=== PATIENT | male | born 1955 | race Caucasian/White ===

== ENCOUNTER 2019-12-16 19:32 | Emergency (ER) | payer OTHER, SELFPAY ==
[2019-12-16 19:44] VITALS: BP 149/76; PULSE 69; RESP 18; TEMP 36.6; O2SAT 98; BMI 33.0
--- NOTE | 2019-12-16 19:51 | XRR_ITS ---
PROCEDURE INFORMATION: Exam: XR Chest, 1 View Exam date and time: 12/16/2019 8:18 PM Age: 64 years old Clinical indication: Other: Syncope TECHNIQUE: Imaging protocol: XR of the chest Views: 1 view. COMPARISON: CR Chest 1 [place] [id number] 08/22/2018 3:00 AM FINDINGS: Lungs: Unremarkable. No consolidation. Pleural space: Unremarkable. No pleural effusion. No pneumothorax. Heart/Mediastinum: Unremarkable. No cardiomegaly. Bones/joints: Unremarkable. XR/XR chest 1V portable [id number] IMPRESSION: No acute findings.
--- NOTE | 2019-12-16 19:52 | ECG_ITS ---
[facility] Test Date: 2019-12-16 Pat Name: Carlos Mack Department: Room: Gender: Male Clinical Research Specialist: : [id number] Requested By: Yamilka Whalen Order Number: [id number] Arredondo MD: Eliz Velasco M.D. Measurements Intervals [place] Rate: 64 P: 60 DC: 184 QRS: -17 QRSD: 101 T: 18 QT: 418 QTc: 434 Interpretive Statements SINUS RHYTHM MINIMAL VOLTAGE CRITERIA FOR LVH, CONSIDER NORMAL VARIANT [MEETS CRITERIA IN ONE OF: R(aVL), S(V1), R(V5), R(V5/V6)+S(V1)] NONSPECIFIC T-WAVE ABNORMALITY Compared to ECG 08/22/2018 11:28:05 T-wave abnormality now present Electronically Signed On 12-16-2019 21:43:37 CDT by Eliz Velasco M.D. [id number]
--- NOTE | 2019-12-16 20:17 | CTR_ITS ---
PROCEDURE INFORMATION: Exam: CT Head Without Contrast Exam date and time: 12/16/2019 8:21 PM Age: 64 years old Clinical indication: Dizziness and syncope and collapse TECHNIQUE: Imaging protocol: Computed tomography of the head without contrast. Radiation optimization: All CT scans at this facility use at least one of these dose optimization techniques: automated exposure control; mA and/or kV adjustment per patient size (includes targeted exams where dose is matched to clinical indication); or iterative reconstruction. COMPARISON: No relevant prior studies available. RADIATION DOSE METRICS: Total DLP (mGy-cm): 965.84 FINDINGS: Brain: There is moderate cortical atrophy. Low-density changes in the white matter are consistent with nonspecific small vessel chronic ischemic change. There is no intracranial mass, hemorrhage or edema. Ventricles: Normal. No ventriculomegaly. Bones/joints: Unremarkable. No acute fracture. Sinuses: Visualized sinuses are unremarkable. No fluid levels. Mastoid air cells: Visualized mastoid air cells are well aerated. Soft tissues: Unremarkable. CT/CT head wo con* [id number] IMPRESSION: Atrophy and chronic ischemic changes. No acute intracranial finding. Radiation Dose CTDIVOL = (mGy): DLP = 965.84 (mGy-cm)
[2019-12-16 20:57] LABS: Basophils # 0.1 10^3/uL (0.0-0.1); Basophils % 0.9 %; Eosinophils # 0.2 10^3/uL (0.0-0.8); Eosinophils % 2.1 %; Hematocrit 46.4 % (42.0-52.0); Hemoglobin 15.3 g/dL (11.7-16.6); Lymphocytes # 2.6 10^3/uL (0.8-4.8); Lymphocytes % 25.5 %; Mean Corpuscular Hemoglobin 28.9 pg (28.0-34.0); Mean Corpuscular Volume 87.5 fL (80-94); Mean Platelet Volume 11.1 fL (7.4-10.4); Monocytes # 0.7 10^3/uL (0.2-0.9); Monocytes % 6.8 %; Neutrophils # 6.56 10^3/uL (1.8-7.7); Neutrophils % 64.1 %; Nucleated Red Blood Cells % 0 %; Platelet Count 145 10^3/cmm (130-400); Red Cell Distribution Width 13.8 % (12.1-15.1); White Blood Count 10.2 10^3/uL (4.0-10.0)
[2019-12-16 21:00] VITALS: BP 161/96; PULSE 61; RESP 14; O2SAT 96
--- NOTE | 2019-12-16 21:02 | ED_ITS ---
HPI - Weakness General: Chief complaint: Weakness Stated complaint: dizziness/syncope Time Seen by Provider: 12/16/19 20:03 Source: patient Mode of arrival: ambulatory Limitations: no limitations History of Present Illness: HPI Narrative: Mr. Mack is a very nice 64-year-old male who comes in complaining of feeling lightheaded and dizzy when he stands up and begins to walk. The symptoms been going on for almost a year but becoming more severe recently. He states sometimes he will fall and he becomes near syncopal but never completely loses consciousness. He denies any injuries from these falls. Patient denies any room spinning dizziness but states when he gets up and stands and begins to walk things began to feel weak all over and his legs get out and he falls to the ground. He denies any preceding chest pain, shortness of breath, palpitations or headache. He denies any recent black or bloody stools. Patient states he has had similar symptoms in the past and he has [facility] and no cause can be determined. He comes in tonight because his symptoms are worsening over the past few days. Currently at rest in the bed he states he feels fine and has no complaints. [facility] ED PFSH: Medical History (Updated 12/17/19 @ 03:16 by Yamilka Dee) Depression GERD (gastroesophageal reflux disease) Hyperlipidemia Hypertension Neuropathy Social History (Updated 12/17/19 @ 03:17 by Yamilka Dee) Smoking and tobacco status: never smoked Alcohol intake: former Substance/Drug Use: never Physical Exam Const: COMMON NORMALS: no acute distress, patient oriented x3, no limitations, healthy appearing and well nourished GENERAL APPEARANCE: cooperative, well kempt and well developed HENMT: COMMON NORMALS: normocephalic, atraumatic, external ears normal, EAC's normal and Normal external nose present HEAD & SCALP: normal to inspection, normocephalic and atraumatic FACE & SINUS: normal facial exam and face symmetric NOSE: Normal external nose present and Normal nares present EXTERNAL EAR: Yes external ears normal EXTERNAL AUDITORY CANAL: EAC's normal MOUTH: Normal oral and palatal mucosa present, lip normal and tongue normal Eye: COMMON NORMALS: Equal, round and reactive pupils present and conjunctivae normal GENERAL EYE: appearance normal, both eyes and all related structures ALIGNMENT: Yes alignment normal PERIORBITAL: periorbital findings normal EYELID: eyelids normal CONJUNCTIVA: Yes conjunctivae normal SCLERA: sclerae normal PUPIL: Yes Equal, round and reactive pupils present Neck/C-Spine: COMMON NORMALS: full ROM, no lymphadenopathy, supple, no meningeal signs and no JVD GENERAL: Yes normal visual inspection and Yes trachea midline Chest: COMMONS NORMALS: normal inspection of the chest and normal palpation of entire chest wall Resp: COMMON NORMALS: normal respiratory effort, No retractions and No use of accessory muscles EFFORT & INSPECTION: Yes able to speak in complete s entences and Yes symmetric chest movement AUSCULTATION: no crackles, no rales, no rhonchi and no wheezes Cardio: COMMON NORMALS: no JVD, regular rate, regular rhythm, S1 normal heart sound present and S2 normal heart sound present RATE: regular rate RHYTHM: regular rhythm HEART SOUNDS: S1 normal heart sound present, S2 normal heart sound present, no click, no gallops, no murmurs, no rubs and abnormal split S2 GI: COMMON NORMALS: Soft to palpation and No hepatosplenomegaly present PALPATION: Yes Soft to palpation, No Tenderness to palpation present (GI), No Guarding due to palpation present (GI), No Rigid due to palpation, Yes No hepatosplenomegaly present, No Hernia present, No Palpable mass present and No Pulsatile mass present : COMMON NORMALS: Yes no CVA tenderness BLADDER/KIDNEY EXAM: Yes no CVA tenderness Back/Pelvis: COMMON NORMALS: no CVA tenderness, thoracic and lumbar spine normal to inspection, no thoracic nor lumbar tenderness and thoraco-lumbar ROM normal Extremity: COMMON NORMALS: normal to inspection, full ROM, capillary refill normal, no joint enlargement, no clubbing, cyanosis or edema and no calf tenderness Neuro: COMMON NORMALS: patient oriented x3, CN's II-XII intact bilaterally, moves all extremities, no focal motor deficits and no sensory deficits noted MENINGEAL SIGNS: Yes no meningeal signs SPEECH: speech normal Psych: COMMON NORMALS: mental status grossly normal, Normal thought process present, cooperative, normal affect, speech normal and activity/motor behavior normal APPEARANCE: Yes well kempt SPEECH: Yes normal speech THOUGHT PROCESS: Normal thought process present Skin: COMMON NORMALS: no rashes or lesions noted, turgor normal, no jaundice, no petechiae and no mottling GENERAL SKIN EXAM: no rashes or lesions noted and turgor normal Course ED course: 2044 -orthostatic blood pressures positive with a drop in systolic blood pressure of 31 points. Vital Signs: Vital signs: Vital Signs Temperature 97.9 F 12/16/19 19:44 Pulse Rate 57 L 12/17/19 00:34 Respiratory Rate 16 12/17/19 00:34 Blood Pressure 195/93 12/17/19 00:34 Pulse Oximetry 96 12/17/19 00:34 MDM - Weakness MDM Narrative: Medical decision making narrative: 0023 -Mr. Cochran is a very nice 64-year-old male who comes in with long-term history of lightheadedness and near syncopal events but this is been much worse here recently. Patient is on Lasix and based upon his orthostatic vital signs and his symptomatology I believe this is likely the cause for his symptoms. Patient has lost 80 pounds and he is trying to self adjust his medications and I believe he will probably need less Lasix than he is needed in the past. After 2 L of IV fluids his vital signs improved and after third liter his symptoms have completely resolved. He has been able to ambulate here without any difficulty, no signs of near syncope or syncope and no lightheadedness or dizziness. At no time as the patient had any nystagmus or room spinning dizziness to suggest a stroke. The patient states that he knows he needs [facility] and to try to stop managing his medications on his own. I have advised the patient to stop his Lasix until seen by the [facility] or at least stop it for the next 3 to 4 days. He agrees to do so. He understands also he needs to return here if his symptoms returned as he may need further work-up. The patient's EKG shows no sign of Ifrvx-Qbmimaorz-Prauc syndrome, obstructed AV pathway, Brugada syndrome, bifascicular blocks, Zepv-Dguttf-Vzyuub syndrome, epsilon wave, or long or short QT syndrome. It does show LVH but the patient is not having any chest pain, palpitations or suggestion of arrhythmia. Symptoms are most concerning for orthostasis. Patient does not want to come in the hospital but wants to go home. He agrees to [facility] the [facility] and they can perform an outpatient echo if necessary. Lab Data: Attestation: I reviewed the patient's lab results. Labs: Lab Results 12/16/19 12/16/19 12/16/19 Range/Units 20:49 20:49 20:49 WBC 10.2 H (4.0-10.0) 10^3/ uL RBC 5.30 (4.1-5.3) 10^6/u L Hgb 15.3 (11.7-16.6) g/dL Hct 46.4 (42.0-52.0) % MCV 87.5 (80-94) fL MCH 28.9 (28.0-34.0) pg MCHC 33.0 (30.0-36.0) g/dL RDW 13.8 (12.1-15.1) % Plt Count 145 (130-400) 10^3/c mm MPV 11.1 H (7.4-10.4) fL Neut % (Auto) 64.1 % Lymph % (Auto) 25.5 % Schleicher % (Auto) 6.8 % Eos % (Auto) 2.1 % Baso % (Auto) 0.9 % Neut # (Auto) 6.56 (1.8-7.7) 10^3/u L Lymph # (Auto) 2.6 (0.8-4.8) 10^3/u L Schleicher # (Auto) 0.7 (0.2-0.9) 10^3/u L Eos # (Auto) 0.2 (0.0-0.8) 10^3/u L Baso # (Auto) 0.1 (0.0-0.1) 10^3/u L Nucleated RBC % (a uto) 0 % Nucleated RBCs # 0.0 /100WBC Sodium 136 (136-145) mmol/L Potassium 4.0 (3.5-5.1) mmol/L Chloride 99 (98-107) mmol/L Carbon Dioxide 26 (22-29) mmol/L Anion Gap 15.0 (5-19) BUN 28 H (8-23) mg/dL Creatinine 1.5 H (0.7-1.2) mg/dL GFR Calculation 47.3 L (90-130) mL/min Glucose 122 H (65-115) mg/dL POC Glucose (70-110) mg/dL Calculated Osmolal ity 280 L (285-295) mOsm/k g Calcium 9.4 (8.5-10.5) mg/dL Magnesium 2.0 (1.7-2.3) mg/dL Total Bilirubin 0.2 (0.15-1.2) mg/dL AST 5 (0-40) U/L ALT < 5 (0-41) U/L Alkaline Phosphata se 83 (40-130) IU/L Troponin T Baselin e 20 H (0-15) ng/L Troponin T 120 Min herbert (0-15) ng/L Delta Troponin T (0-10) ABS# Total Protein 7.1 (6.6-8.7) g/dL Albumin 4.2 (3.5-5.2) g/dL Globulin 2.9 (1.3-4.6) g/dL Urine Color (Yellow) Urine Appearance (CLEAR) Urine pH (5-7) Ur Specific Gravit y (1.005-1.030) Urine Protein (Negative) Urine Glucose (UA) (Normal) Urine Ketones (Negative) Urine Blood (Negative) Urine Nitrate (Negative) Urine Bilirubin (NEGATIVE) Urine Urobilinogen (Negative) mg/dL Ur Leukocyte Elsi ase (Negative) 12/16/19 12/16/19 12/16/19 Range/Units 21:51 21:59 23:43 WBC (4.0-10.0) 10^3/ uL RBC (4.1-5.3) 10^6/u L Hgb (11.7-16.6) g/dL Hct (42.0-52.0) % MCV (80-94) fL MCH (28.0-34.0) pg MCHC (30.0-36.0) g/dL RDW (12.1-15.1) % Plt Count (130-400) 10^3/c mm MPV (7.4-10.4) fL Neut % (Auto) % Lymph % (Auto) % Schleicher % (Auto) % Eos % (Auto) % Baso % (Auto) % Neut # (Auto) (1.8-7.7) 10^3/u L Lymph # (Auto) (0.8-4.8) 10^3/u L Schleicher # (Auto) (0.2-0.9) 10^3/u L Eos # (Auto) (0.0-0.8) 10^3/u L Baso # (Auto) (0.0-0.1) 10^3/u L Nucleated RBC % (a uto) % Nucleated RBCs # /100WBC Sodium (136-145) mmol/L Potassium (3.5-5.1) mmol/L Chloride (98-107) mmol/L Carbon Dioxide (22-29) mmol/L Anion Gap (5-19) BUN (8-23) mg/dL Creatinine (0.7-1.2) mg/dL GFR Calculation (90-130) mL/min Glucose (65-115) mg/dL POC Glucose 118 (70-110) mg/dL Calculated Osmolal ity (285-295) mOsm/k g Calcium (8.5-10.5) mg/dL Magnesium (1.7-2.3) mg/dL Total Bilirubin (0.15-1.2) mg/dL AST (0-40) U/L ALT (0-41) U/L Alkaline Phosphata se (40-130) IU/L Troponin T Baselin e (0-15) ng/L Troponin T 120 Min herbert 19.57 H (0-15) ng/L Delta Troponin T -0.43 L (0-10) ABS# Total Protein (6.6-8.7) g/dL Albumin (3.5-5.2) g/dL Globulin (1.3-4.6) g/dL Urine Color Yellow (Yellow) Urine Appearance Clear (CLEAR) Urine pH 5 (5-7) Ur Specific Gravit y 1.025 (1.005-1.030) Urine Protein Neg (Negative) Urine Glucose (UA) Norm (Normal) Urine Ketones Negative (Negative) Urine Blood Neg (Negative) Urine Nitrate Negative (Negative) Urine Bilirubin Neg (NEGATIVE) Urine Urobilinogen Norm (Negative) mg/dL Ur Leukocyte Elsi ase Negative (Negative) Imaging Data^: CXR: Attestation: I personally reviewed and interpreted this imaging study as follows: My impression: No acute cardiopulmonary findings. CT Head: Radiologist's impression: [address] [address] [address] Scan Report Signed Patient: Carlos Mack Unit #: [id number] : 1955 Age/Sex: 64 / M ADM Date: 12/16/19 Loc: ER Room/Bed: Attending Dr: Ordering Provider/Ordering MD: Yamilka Dee DO Date of Service: 12/16/19 Procedure(s): CT head wo con* [id number] Accession Number(s): [id number] Report Number: [id number] PROCEDURE INFORMATION: Exam: CT Head Without Contrast Exam date and time: 12/16/2019 8:21 PM Age: 64 years old Clinical indication: Dizziness and syncope and collapse TECHNIQUE: Imaging protocol: Computed tomography of the head without contrast. Radiation optimization: All CT scans at this facility use at least one of these dose optimization techniques: automated exposure control; mA and/or kV adjustment per patient size (includes targeted exams where dose is matched to clinical indication); or iterative reconstruction. COMPARISON: No relevant prior studies available. RADIATION DOSE METRICS: Total DLP (mGy-cm): 965.84 FINDINGS: Brain: There is moderate cortical atrophy. Low-density changes in the white matter are consistent with nonspecific small vessel chronic ischemic change. There is no intracranial mass, hemorrhage or edema. Ventricles: Normal. No ventriculomegaly. Bones/joints: Unremarkable. No acute fracture. Sinuses: Visualized sinuses are unremarkable. No fluid levels. Mastoid air cells: Visualized mastoid air cells are well aerated. Soft tissues: Unremarkable. CT/CT head wo con* [id number] IMPRESSION: Atrophy and chronic ischemic changes. No acute intracranial finding. Radiation Dose CTDIVOL = (mGy): DLP = 965.84 (mGy-cm) Dictated By: Rhys Miller Signed By: Rhys Miller Signed Date/Time: 12/16/192049 DD/ 49 EKG Data^: EKG 1: Attestation: I personally reviewed and interpreted this EKG as follows: EKG interpretation date: 12/16/19 EKG interpretation time: 19:59 Interpretation: Normal sinus rhythm at 64 beats a minute, left axis deviation, LVH present, no other acute ST or T wave changes. EKG 2: Attestation: I personally reviewed and interpreted this EKG as follows: EKG interpretation date: 12/16/19 EKG interpretation time: 22:13 Interpretation: Normal sinus rhythm at 59 beats a minute, left axis deviation, no acute ST or T wave changes. Discharge Plan Discharge Patient Disposition: Home Clinical Impression: Near syncope, Orthostasis Condition: Stable Prescriptions: No Action Airborne (ascorbate sodium) 1 tab PO DAILY RF: 0 Multiple Vitamins Tablet 1 tab PO DAILY RF: 0 Lasix 40 mg Tablet 40 mg PO QAM RF: 0 metoprolol tartrate 100 mg Tablet 100 mg PO BID RF: 0 trazodone 100 mg Tablet 100 mg PO BEDTIME RF: 0 Protonix 40 mg Tablet,Delayed Release (Dr/Ec) 40 mg PO BID RF: 0 indomethacin 50 mg Capsule 50 mg PO TID RF: 0 omeprazole 20 mg Capsule,Delayed Release(Dr/Ec) 20 mg PO QAM RF: 0 vitamin B complex Tablet 1 tab PO DAILY RF: 0 hydralazine 50 mg Tablet 50 mg PO TID RF: 0 sertraline 50 mg Tablet 50 mg PO DAILY RF: 0 Mucus Relief 400 mg Tablet 400 mg PO PRN RF: 0 Lyrica 75 mg Capsule 75 mg PO TID RF: 0 Flushing-3 350 mg-235 mg- 90 mg-597 mg Capsule,Delayed Release(Dr/Ec) 1 cap PO DAILY RF: 0 folic acid 1 tab PO DAILY RF: 0 magnesium oxide 1 tab PO DAILY RF: 0 Discharge Orders: Discharge Order (Routine); Ordered 12/17/19 Ordered By: Yamilka Dee Referrals: Sushant Hooper MD [Primary Care Provider] - 1-3 days Discharge Diet: Usual diet Discharge Activity: Increase activity as tolerated Patient Instructions: Dehydration (ED), Near Syncope (ED) Activity Restrictions/Additional Instructions: Please return to the ER immediately for any of the signs or symptoms listed on your discharge instruction sheets, worsening/changing of your symptoms, you are not getting better as quickly as expected, or for ANY other cause or concerns. Hold your Lasix for at least 2 to 3 days, ideally hold it until you could be [facility] and have your medicines and symptoms reviewed. If your symptoms of lightheadedness and nearly passing out return please return to the ER immediately for recheck. Discharge Date/Time: 12/17/19 00:35 Coding Level of Care Code ED Class 1 Owner Operator for Chg Fwd Exam Comprehensive
[2019-12-16 21:21] LABS: Albumin Level 4.2 g/dL (3.5-5.2); Alkaline Phosphatase 83 IU/L (40-130); Blood Urea Nitrogen 28 mg/dL (8-23); Calcium 9.4 mg/dL (8.5-10.5); Carbon Dioxide 26 mmol/L (22-29); Chloride 99 mmol/L (98-107); Globulin 2.9 g/dL (1.3-4.6); Glomerular Filtration Rate 47.3 mL/min (90-130); Glucose 122 mg/dL (65-115); Osmolality Calculated 280 mOsm/kg (285-295); Sodium 136 mmol/L (136-145); Total Bilirubin 0.2 mg/dL (0.15-1.2); Total Protein 7.1 g/dL (6.6-8.7)
[2019-12-16 21:24] LABS: Troponin(5th) Baseline 20 ng/L (0-15)
[2019-12-16 21:36] LABS: Alanine Aminotransferase < 5 U/L (0-41); Aspartate Amino Transferase 5 U/L (0-40)
[2019-12-16] MEDS: sodium chloride 0.9% 1,000 ML 999 ML IV ×3 (21:52→23:09)
--- NOTE | 2019-12-16 21:52 | ECG_ITS ---
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 Measurements Intervals [place] Rate: 59 P: 84 TX: 185 QRS: -17 QRSD: 101 T: 19 QT: 439 QTc: 437 Interpretive Statements SINUS BRADYCARDIA POSSIBLE LEFT VENTRICULAR HYPERTROPHY [VOLTAGE CRITERIA PLUS LAE OR QRS WIDENING] NONSPECIFIC ST & T-WAVE ABNORMALITY Compared to ECG 12/16/2019 19:59:42 T-wave abnormality still present Electronically Signed On 12-17-2019 18:13:10 CDT by Sarmad Hernandez M.D. [email or web address]/store/[id number]
[2019-12-16 22:13] LABS: Add Urine Microscopic? NO
[2019-12-16 22:27] LABS: Bilirubin Urine Neg (NEGATIVE); Blood Urine Neg (Negative); Glucose Urine UA Norm (Normal); Ketones Urine Negative (Negative); Leukocyte Esterase Urine Negative (Negative); Nitrate Urine Negative (Negative); Protein Urine Neg (Negative); Specific Gravity, Urine 1.025 (1.005-1.030); Urine Appearance Clear (CLEAR); Urine Color Yellow (Yellow); Urobilinogen Urine Norm (Negative); pH Urine 5 (5-7)
[2019-12-16 22:43] LABS: Troponin 5 2HR 19.57 ng/L (0-15)
[2019-12-16 22:46] LABS: Troponin 5 2HR Delta -0.43 ABS# (0-10)
[2019-12-16 22:57] VITALS: BP 187/106; PULSE 54; RESP 14; O2SAT 96
[2019-12-16] MEDS: acetaminophen 500 mg Tablet 1000 MG PO (23:17)
[2019-12-16 23:30] VITALS: BP 193/98; PULSE 55; RESP 16; O2SAT 96
[2019-12-16 23:48] LABS: Glucose Point of Care 118 mg/dL (70-110)
--- NOTE | 2019-12-17 00:22 | PC.NURSE ---
Patient able to ambulate without difficulty
[2019-12-17 00:34] VITALS: BP 195/93; PULSE 57; RESP 16; O2SAT 96
== END 2019-12-17 00:35 | disposition home or self-care (01) ==
PROVIDERS: Emergency Provider Emergency Medicine; PCP Internal Medicine
DX: R55 Syncope and collapse (principal); I95.1 Orthostatic hypotension; E78.5 Hyperlipidemia, unspecified; I10 Essential (primary) hypertension
CPT/HCPCS: 12345; 36415; 36416; 70450; 71045; 80053; 81003; 82962; 83735; 84484; 85025; 93005; 93010; 96360; 96361; 99283; J7030

== ENCOUNTER 2020-03-31 08:30 | Outpatient (CLI) | payer OTHER, SELFPAY ==
--- NOTE | 2020-03-31 08:40 | MR_ITS ---
WS: [id number] MRI HEAD WITH CONTRAST WITH ATTENTION TO THE INTERNAL AUDITORY CANALS TECHNIQUE: Sagittal T1, T2 axial, T2 axial flair, axial susceptibility weighted imaging, axial diffus ion weighted images, and coronal T2 images were obtained. Pre and post T1 axial and post T1 coronal i mages. ADC and FSPGR images. Post gadolinium images with attention to the internal auditory canals. A xial fiesta imaging. CLINICAL INFORMATION: DIZZINESS AND GIDDINESS COMPARISON: CT December 16, 2019 FINDINGS: No evidence of restricted diffusion to suggest acute ischemia. Ventricular system and basal cisterns are patent. Moderate small vessel changes. Moderate parenchymal volume loss. Small vessel changes in the alvino. Normal posterior fossa. Normal vascular flow voids at the skull base. No extra-axial fluid collections. Partial opacification right mastoid air cells. No hemosiderin on the susceptibility weighted images. Proximal 7th and 8th cranial nerves appear norm al. Normal trigeminal nerve root entry zones. No evidence of enhancing IAC or CP angle mass. Normal o ptic chiasm and pituitary infundibulum. Normal cavernous sinuses and Meckel's cave. No abnormal intra cranial enhancement. Visualized dural venous sinuses are patent. MR/MR iac's wo/w con* [id number] IMPRESSION: 1. No evidence of enhancing IAC or CP angle mass. 2. Proximal 7th and 8th cranial nerves are normal. Normal trigeminal nerve barbie t entry zones. 3. Normal optic chiasm and pituitary infundibulum. 4. Moderate small vessel changes with moderate parenchymal volume loss. Small vessel changes in the alvino. 5. Paranasal sinuses are well aerated. Mild mucosal thickening right mastoid a ir cells. Left mastoid air cells well aerated. 6. No other significant findings.
== END 2020-03-31 08:31 | disposition home or self-care (01) ==
LOC: RADWPI 08:34
PROVIDERS: PCP Internal Medicine; Visit Provider Specialist
DX: R42 Dizziness and giddiness (principal)
CPT/HCPCS: 70553; A9579

== ENCOUNTER 2020-07-05 23:31 | Emergency (ER) | payer OTHER, SELFPAY ==
[2020-07-05 23:34] VITALS: BP 136/84; PULSE 63; RESP 16; TEMP 36.6; O2SAT 95; BMI 33.0
--- NOTE | 2020-07-05 23:37 | XR_ITS ---
WS: [id number] Exam: XR knee RT 3V* [id number] Date/Time of Exam: 07/05/2020 11:41 PM Reason For Exam: fall No acute fracture or dislocation. Moderate tricompartmental DJD. No joint effusion. Meniscal calcific ations are noted with probable calcified loose joint bodies. XR/XR knee RT 3V* [id number] IMPRESSION: 1. No fracture or dislocation. 2. Degenerative changes and chondrocalcinosis. Probable calcified loose joint b odies.
--- NOTE | 2020-07-05 23:38 | W.ED.FALL ---
HPI - Fall General: Chief Complaint: Extremity Injury, Lower Stated Complaint: KNEE PAIN Time Seen by Provider: 07/05/20 23:31 Source: patient and EMS Mode of arrival: EMS Limitations: no limitations History of Present Illness: HPI Narrative: 65-year-old male who states that he slipped and fell this morning on the ice. States he twisted his right knee and has had medial knee pain since then. States pain is sharp in nature rates an 8 out of 10. He has had difficulty walking on that knee as it feels unstable. Denies any other injuries. Denies hitting his head. MD complaint: fall Associated symptoms-after fall: Denies abdominal pain, chest pain or headache(s) Review of Systems Const: Denies: fever(s), chills, body aches or change in appetite Eyes: Denies: blurry vision or eye discomfort ENMT: Denies: throat pain or dental pain Card: Denies: chest pain Resp: Denies: dyspnea GI: Denies: abdominal pain, nausea, vomiting or diarrhea : Denies: dysuria Musc: Reports: joint pain Skin/Breast: Denies: rash Neuro: Denies: headache(s) Psych: Denies: depression Hood/Lymph: Denies: easy bruising All/Imm: Denies: urticaria PFSH ED PFSH: Medical History (Updated 07/05/20 @ 23:55 by Ludin Fitch MD) Depression GERD (gastroesophageal reflux disease) Hyperlipidemia Hypertension Neuropathy Social History Smoking and tobacco status: never smoked Alcohol intake: former Physical Exam Const: COMMON NORMALS: no acute distress, patient oriented x3 and healthy appearing HENMT: COMMON NORMALS: normocephalic and atraumatic HEAD & SCALP: normocephalic and atraumatic Eye: COMMON NORMALS: Equal, round and reactive pupils present and EOMs intact bilaterally PUPIL: Yes Equal, round and reactive pupils present Neck/C-Spine: COMMON NORMALS: full ROM and supple Chest: COMMONS NORMALS: normal inspection of the chest and normal palpation of entire chest wall Resp: COMMON NORMALS: normal respiratory effort, No retractions, No use of accessory muscles and clear to auscultation bilaterally AUSCULTATION: clear to auscultation bilaterally Cardio: COMMON NORMALS: regular rate, regular rhythm and No murmurs present (Cardio) RATE: regular rate RHYTHM: regular rhythm GI: COMMON NORMALS: Normal to inspection, nondistended, normoactive bowel sounds present, Soft to palpation, non-tender and no masses PALPATION: Yes Soft to palpation Extremity: NARRATIVE EXTREMITY EXAM: Slight tenderness over medial aspect of right knee no obvious deformity. Distal pulses are intact. Neuro: COMMON NORMALS: patient oriented x3, moves all extremities and no focal motor deficits Psych: COMMON NORMALS: mental status grossly normal, Normal thought process present and cooperative THOUGHT PROCESS: Normal thought process present Skin: COMMON NORMALS: no rashes or lesions noted and no wounds GENERAL SKIN EXAM: no rashes or lesions noted Course Vital Signs: Vital signs: Vital Signs Temperature 97.9 F 07/05/20 23:34 Pulse Rate 63 07/05/20 23:34 Respiratory Rate 16 07/05/20 23:34 Blood Pressure 136/84 07/05/20 23:34 Pulse Oximetry 95 07/05/20 23:34 MDM - Fall MDM Narrative: Medical decision making narrative: Patient presents here with knee pain from a fall. Patient's x-ray here shows no acute fracture. He is able to walk on it some. I did inform him to weight-bear as tolerated though and will place him on crutches and a knee immobilizer. We will get him follow-up with orthopedics as he likely needs an MRI if he continues to have pain. Imaging Data^: xr knee: Attestation: I personally reviewed and interpreted this imaging study as follows: My impression: no acute abnormality Discharge Plan Discharge Patient Disposition: Home Clinical Impression: Right knee sprain Qualifiers: Encounter type: initial encounter Involved ligament of knee: unspecified ligament Qualified Code(s): S83.91XA - Sprain of unspecified site of right knee, initial encounter Condition: Stable Prescriptions: New Naprosyn 500 mg tablet 500 mg PO BID PRN (Reason: pain) Qty: 20 RF: 0 No Action Airborne (ascorbate sodium) 1 tab PO DAILY RF: 0 Multiple Vitamins Tablet 1 tab PO DAILY RF: 0 Lasix 40 mg Tablet 40 mg PO QAM RF: 0 metoprolol tartrate 100 mg Tablet 100 mg PO BID RF: 0 trazodone 100 mg Tablet 100 mg PO BEDTIME RF: 0 Protonix 40 mg Tablet,Delayed Release (Dr/Ec) 40 mg PO BID RF: 0 indomethacin 50 mg Capsule 50 mg PO TID RF: 0 omeprazole 20 mg Capsule,Delayed Release(Dr/Ec) 20 mg PO QAM RF: 0 vitamin B complex Tablet 1 tab PO DAILY RF: 0 hydralazine 50 mg Tablet 50 mg PO TID RF: 0 sertraline 50 mg Tablet 50 mg PO DAILY RF: 0 Mucus Relief 400 mg Tablet 400 mg PO PRN RF: 0 Lyrica 75 mg Capsule 75 mg PO TID RF: 0 [place]-3 350 mg-235 mg- 90 mg-597 mg Capsule,Delayed Release(Dr/Ec) 1 cap PO DAILY RF: 0 folic acid 1 tab PO DAILY RF: 0 magnesium oxide 1 tab PO DAILY RF: 0 Discharge Orders: Discharge ED (Routine); Ordered 07/05/20 Ordered By: Ludin Fitch Referrals: Denzel Da Silva DO [Physician] - 1-3 days Sushant Hooper MD [Primary Care Provider] - Discharge Diet: Advance as tolerated Discharge Activity: Resume usual activity Patient Instructions: Knee Sprain (ED), Knee Immobilizer (ED) Coding Level of Care Code ED Composition Stone Applicator for Chg Fwd Exam Comprehensive
--- NOTE | 2020-07-06 08:54 | DCPLANNER ---
Addendum entered by Nani Dumont 07/06/20 09:21: Patient has [facility] insurance, director case management will email patients information to Lizabeth with [facility], so that the authorization process can be started. it application development manager called the ortho clinic, letting clinic know that patient has [facility] insurance and that director case management will email patients information to the [facility]. Original Note: it application development manager had message to schedule a follow up appointment for patient with ortho. it application development manager called the ortho clinic, spoke with Janelle, gave clinic patients information. it application development manager was told that patients information would be printed and reviewed. Clinic will call patient with appointment information.
--- NOTE | 2020-07-13 15:04 | DCPLANNER ---
Patient has a follow up appointment scheduled for Monday, July 20, 2020 at 2:[address] Bonner. Clinic will call patient with appointment information. television station manager emailed August with [facility] appointment information for patient.
--- NOTE | 2020-07-30 08:11 | DCPLANNER ---
Patient had a follow up appointment with Dr. Bonner at ortho on 07.20.20 - patient did attend appointment.
== END 2020-07-06 00:18 | disposition home or self-care (01) ==
PROVIDERS: Emergency Provider Emergency Medicine; PCP Internal Medicine
DX: S83.91XA Sprain of unspecified site of right knee, initial encounter (principal); I10 Essential (primary) hypertension; E78.5 Hyperlipidemia, unspecified; W00.0XXA Fall on same level due to ice and snow, initial encounter
CPT/HCPCS: 29530; 73562; 99283; E0114

== ENCOUNTER 2020-12-07 06:00 | Outpatient (RCR) | payer OTHER, SELFPAY | END 2020-12-11 23:59 | disposition home or self-care (01) | LOC: WPT 06:00 | PROVIDERS: PCP Internal Medicine; Referring Provider Internal Medicine; Visit Provider Internal Medicine | DX: S83.91XD Sprain of unspecified site of right knee, subsequent encounter (principal); X58.XXXD Exposure to other specified factors, subsequent encounter | CPT/HCPCS: 97161 ==

== ENCOUNTER 2023-02-15 06:00 | Outpatient (RCR) | payer OTHER, SELFPAY | END 2023-03-13 23:59 | disposition home or self-care (01) | LOC: WPT 06:00 | PROVIDERS: Visit Provider Internal Medicine | DX: G82.52 Quadriplegia, C1-C4 incomplete (principal) | CPT/HCPCS: 97110; 97112; 97161; 97530 ==

== ENCOUNTER 2023-05-29 16:44 | Emergency (ER) | payer OTHER, SELFPAY ==
[2023-05-29 16:46] VITALS: BMI 25.4
[2023-05-29 16:48] VITALS: BP 153/86; PULSE 64; RESP 16; TEMP 36.8; O2SAT 96
--- NOTE | 2023-05-29 16:53 | CTR_ITS ---
PROCEDURE INFORMATION: Exam: CT Cervical Spine Without Contrast Exam date and time: 05/29/2023 5:16 PM Age: 68 years old Clinical indication: Injury or trauma; Fall; Blunt trauma; Prior surgery; Surgery date: 6+ months; Surgery type: C spine TECHNIQUE: Imaging protocol: Computed tomography of the cervical spine without contrast. Axial, coronal and sagittal reformatted images were created and reviewed. Radiation optimization: All CT scans at this facility use at least one of these dose optimization techniques: automated exposure control; mA and/or kV adjustment per patient size (includes targeted exams where dose is matched to clinical indication); or iterative reconstruction. COMPARISON: CT head wo con* [id number] 05/29/2023 5:16 PM RADIATION DOSE METRICS: Total DLP (mGy-cm): 264 FINDINGS: Bones/joints: Osteopenia. Straightening of the normal cervical lordosis. Status post C2-C4 ACDF. Status post C2-C6 posterior fusion with associated laminectomy defects. No CT evidence of acute fracture, dislocation or subluxation. Alignment anatomic. Minimal levoscoliosis. Next Vertebral body heights maintained. Mild multilevel degenerative changes, characterized by disc space narrowing, osteophytosis and uncovertebral and facet joint hypertrophy. Mild multilevel spinal canal and neural foraminal narrowing. Lungs: Grossly unremarkable. Soft tissues: Grossly unremarkable. CT/CT cervical spin wo con* [id number] [address]: 1[address] No CT evidence of acute cervical spine traumatic injury. 2. Additional findings, as above.
--- NOTE | 2023-05-29 16:53 | CTR_ITS ---
PROCEDURE INFORMATION: Exam: CT Head Without Contrast Exam date and time: 05/29/2023 5:16 PM Age: 68 years old Clinical indication: Injury or trauma; Fall; Blunt trauma (contusions or hematomas) TECHNIQUE: Imaging protocol: Computed tomography of the head without contrast. Axial, coronal and sagittal reformatted images were created and reviewed. Radiation optimization: All CT scans at this facility use at least one of these dose optimization techniques: automated exposure control; mA and/or kV adjustment per patient size (includes targeted exams where dose is matched to clinical indication); or iterative reconstruction. COMPARISON: CT head wo con* [id number] 12/16/2019 8:25 PM RADIATION DOSE METRICS: Total DLP (mGy-cm): 1256 FINDINGS: Brain: Patchy areas of hypoattenuation in the periventricular and subcortical white matter, consistent with chronic small vessel ischemic disease. Focal, well-circumscribed hypodensities in the basal ganglia, consistent with chronic lacunar infarcts. No CT evidence of acute intracranial hemorrhage or acute territorial infarction. No significant mass effect or midline shift. Basal cisterns patent. Cerebral ventricles: Prominence of the cortical sulci, cisterns and ventricular system, consistent with cerebral and cerebellar volume loss. Paranasal sinuses: Mild ethmoid mucosal thickening. No fluid levels. Mastoid air cells: Partial opacification and sclerosis of the right mastoid air cells. Bones/joints: No acute osseous abnormality. Soft tissues: Small left frontal scalp sebaceous cyst. Vasculature: Calcific atherosclerotic disease in the cavernous internal carotid arteries, as well as the vertebro-basilar system. CT/CT head wo con* [id number]: 1[address] No CT evidence of acute intracranial pathology. 2. Additional findings, as above.
--- NOTE | 2023-05-29 16:53 | W.ED.NECK ---
Documented by User: Harshil Hill DO 05/30/23 06:03 HPI - Neck Pain/Injury General: Chief Complaint: Neck Pain/Injury Stated Complaint: Neck Pain Time Seen by Provider: 05/29/23 16:51 Source: patient Mode of arrival: EMS History of Present Illness: A six 8-year-old male presents emergency room after falling yesterday hitting his head and neck he has no increased neck pain. He has chronic neck pain from previous neck injury several months ago for which she underwent surgery his chronic upper extremity radicular numbness and tingling to his arms that is unchanged from his previous baseline denies any other injuries there is no loss of consciousness MD complaint: neck pain Onset (ago): day(s) (1) Place: home Radiation: right upper extremity and left upper extremity Severity: mild Quality: tingling Duration: constant Relieving factors: none Exacerbating factors: none Context: fall Associated symptoms: Denies dysphagia, difficulty walking, dizziness, fevers/chills, headache(s), nausea, swollen glands, tingling or weakness Treatments prior to arrival: none Review of Systems Const: Denies: fever(s) or chills Card: Denies: chest pain Resp: Denies: dyspnea GI: Denies: nausea or dysphagia : Denies: dysuria, urinary frequency or urinary urgency Musc: Denies: neck pain or back pain Skin/Breast: Denies: rash Neuro: Denies: headache(s), difficulty walking or dizziness PFSH ED PFSH: Medical History Depression Neuropathy GERD (gastroesophageal reflux disease) Hyperlipidemia Hypertension Family History Mother Cancer Dementia Father Cancer Psychiatric illness Social History Smoking and tobacco/nicotine status: never used tobacco/nicotine Alcohol intake: former Substance/Drug Use: never Physical Exam Const: GENERAL APPEARANCE: cooperative and comfortable ORIENTATION/CONSCIOUSNESS: Yes awake, Yes oriented to person, Yes oriented to place and Yes oriented to time HENMT: COMMON NORMALS: normocephalic, atraumatic and hearing grossly normal bilaterally HEAD & SCALP: normocephalic and atraumatic Neck/C-Spine: OTHER: C-collar in place. Upper extremity home care manager rn strength sensation normal neurovascular intact in the upper extremities Resp: COMMON NORMALS: normal respiratory effort, No retractions, No use of accessory muscles and clear to auscultation bilaterally AUSCULTATION: clear to auscultation bilaterally Cardio: COMMON NORMALS: regular rate, regular rhythm and No murmurs present (Cardio) RATE: regular rate RHYTHM: regular rhythm GI: COMMON NORMALS: Soft to palpation and No hepatosplenomegaly present AUSCULTATION: Yes normoactive bowel sounds PALPATION: Yes Soft to palpation, No Tenderness to palpation present (GI), No Guarding due to palpation present (GI) and Yes No hepatosplenomegaly present Extremity: COMMON NORMALS: normal to inspection, capillary refill normal, no clubbing, cyanosis or edema, no calf tenderness and no pedal edema Neuro: SENSORIUM/ORIENTATION: Yes oriented to person, Yes oriented to place and Yes oriented to time Skin: COMMON NORMALS: no rashes or lesions noted GENERAL SKIN EXAM: no rashes or lesions noted Course Vital Signs: Vital signs: Vital Signs Temperature 98.3 F 05/29/23 16:48 Pulse Rate 62 05/29/23 18:22 Respiratory Rate 16 05/29/23 18:22 Blood Pressure 151/98 05/29/23 18:22 Pulse Oximetry 95 05/29/23 18:22 Oxygen Delivery Me thod Room Air 05/29/23 18:22 MDM - Neck Pain/Injury Medical Decision Making Care signed out to Dr. Gramajo at change of shift. See final notes for diagnosis and disposition. Lab Data 05/29/23 17:05 05/29/23 17:05 Radiology Impressions Cervical Spine CT 05/29/23 16:[address]: 1[address] evidence of acute cervical spine traumatic injury. 2. Additional findings, as above. Head CT 05/29/23 16:[address]: 1[address] evidence of acute intracranial pathology. 2. Additional findings, as above. Laboratory Results WBC 7.96 10^3/uL (3.29-11.43) 05/29/23 17:05 RBC 5.09 10^6/uL (3.85-5.65) 05/29/23 17:05 Hgb 15.60 g/dL (11.27-16.99) 05/29/23 17:05 Hct 47.6 % (37-53) 05/29/23 17:05 MCV 93.5 fl (82-101) 05/29/23 17:05 MCH 30.6 pg (27-33) 05/29/23 17:05 MCHC 32.8 g/dL (30-55) 05/29/23 17:05 RDW 13.2 % (12.1-15.1) 05/29/23 17:05 Plt Count 131 10^3/cmm (157-399) L 05/29/23 17:05 MPV 10.2 fL (7.4-10.4) 05/29/23 17:05 Neut % (Auto) 63.8 % 05/29/23 17:05 Lymph % (Auto) 23.9 % 05/29/23 17:05 [place] % (Auto) 7.9 % 05/29/23 17:05 Eos % (Auto) 2.9 % 05/29/23 17:05 Baso % (Auto) 1.1 % 05/29/23 17:05 Neut # (Auto) 5.08 10^3/uL (1.8-7.7) 05/29/23 17:05 Lymph # (Auto) 1.9 10^3/uL (0.8-4.8) 05/29/23 17:05 [place] # (Auto) 0.6 10^3/uL (0.2-0.9) 05/29/23 17:05 Eos # (Auto) 0.2 10^3/uL (0.0-0.8) 05/29/23 17:05 Baso # (Auto) 0.1 10^3/uL (0.0-0.1) 05/29/23 17:05 Nucleated RBC % (auto) 0 % 05/29/23 17:05 Nucleated RBCs # 0.0 /100WBC 05/29/23 17:05 Sodium 138 mmol/L (136-145) 05/29/23 17:05 Potassium 3.6 mmol/L (3.5-5.1) 05/29/23 17:05 Chloride 102 mmol/L (98-107) 05/29/23 17:05 Carbon Dioxide 25 mmol/L (22-29) 05/29/23 17:05 Anion Gap 14.6 (5-19) 05/29/23 17:05 BUN 19 mg/dL (8-23) 05/29/23 17:05 Creatinine 0.7 mg/dL (0.7-1.2) 05/29/23 17:05 GFR Calculation 112.5 mL/min (90-130) 05/29/23 17:05 Glucose 131 mg/dL (65-115) H 05/29/23 17:05 Calculated Osmolality 290 mOsm/kg (285-295) 05/29/23 17:05 Calcium 10.3 mg/dL (8.5-10.5) 05/29/23 17:05 Total Bilirubin 0.2 mg/dL (0.15-1.2) 05/29/23 17:05 AST 29 U/L (0-40) 05/29/23 17:05 ALT 26 U/L (0-41) 05/29/23 17:05 Alkaline Phosphatase 113 U/L (40-130) 05/29/23 17:05 Total Protein 7.1 g/dL (6.6-8.7) 05/29/23 17:05 Albumin 3.9 g/dL (3.5-5.2) 05/29/23 17:05 Globulin 3.2 g/dL (1.3-4.6) 05/29/23 17:05 Discharge Plan Discharge Patient Disposition: Home Clinical Impression: Acute neck pain Fall Qualifiers: Encounter type: initial encounter Qualified Code(s): W19.XXXA - Unspecified fall, initial encounter Condition: Stable Prescriptions: New hydrocodone-acetaminophen 5-325 mg tablet 1 tab PO Q8H PRN (Reason: pain) Qty: 7 0RF No Action Naprosyn 500 mg tablet 500 mg PO BID PRN (Reason: pain) Qty: 20 0RF Airborne (ascorbate sodium) 1 tab PO DAILY Multiple Vitamins Tablet 1 tab PO DAILY Lasix 40 mg Tablet 40 mg PO QAM metoprolol tartrate 100 mg Tablet 100 mg PO BID trazodone 100 mg Tablet 100 mg PO BEDTIME Protonix 40 mg Tablet,Delayed Release (Dr/Ec) 40 mg PO BID Rx Instructions: pts states the pt takes 40mg po qam indomethacin 50 mg Capsule 50 mg PO TID Rx Instructions: pts states the pt takes 50mg bid omeprazole 20 mg Capsule,Delayed Release(Dr/Ec) 20 mg PO QAM Rx Instructions: pt states he takes this medication or pantoprazole but not both together vitamin B complex Tablet 1 tab PO DAILY hydralazine 50 mg Tablet 50 mg PO TID Rx Instructions: pts states the pt takes 50mg bid sertraline 50 mg Tablet 50 mg PO DAILY Mucus Relief 400 mg Tablet 400 mg PO PRN Lyrica 75 mg Capsule 75 mg PO TID Rx Instructions: pts states the pt takes 75mg bid [place]-3 350 mg-235 mg- 90 mg-597 mg Capsule,Delayed Release(Dr/Ec) 1 cap PO DAILY folic acid 1 tab PO DAILY magnesium oxide 1 tab PO DAILY Discharge Orders: Discharge ED (Routine); Ordered 05/29/23 Ordered By: Lenny Gramajo Patient Instructions: Acute Neck Pain (ED), Opioid Safety, Pain Management Activity Restrictions/Additional Instructions: Please take all medicine as directed. Please follow-up with your family practice physician within next 7 days for further evaluation and treatment as needed. Coding Level of Care Code ED Cook Pie for Chg Fwd Documented by User: Lenny Gramajo DO 05/30/23 03:25 HPI - Neck Pain/Injury General: Chief Complaint: Neck Pain/Injury Stated Complaint: Neck Pain Time Seen by Provider: 05/29/23 16:51 [facility] ED PFSH: Medical History Depression Neuropathy GERD (gastroesophageal reflux disease) Hyperlipidemia Hypertension Family History Mother Cancer Dementia Father Cancer Psychiatric illness Social History Smoking and tobacco/nicotine status: never used tobacco/nicotine Alcohol intake: former Substance/Drug Use: never Course Vital Signs: Vital signs: Vital Signs Temperature 98.3 F 05/29/23 16:48 Pulse Rate 62 05/29/23 18:22 Respiratory Rate 16 05/29/23 18:22 Blood Pressure 151/98 05/29/23 18:22 Pulse Oximetry 95 05/29/23 18:22 Oxygen Delivery Me thod Room Air 05/29/23 18:22 MDM - Neck Pain/Injury Medical Decision Making Care signed out to Dr. Gramajo at change of shift. See final notes for diagnosis and disposition. CT scan showed no acute injury of the cervical spine and head CT was negative also. Upon walking the patient's room the patient was lying in bed comfortably no acute distress with a c-collar off. Patient was instructed of his results. Patient be discharged home to follow-up with his PCP. Patient be given a small prescription for hydrocodone. Lab Data 05/29/23 17:05 05/29/23 17:05 Radiology Impressions Cervical Spine CT 05/29/23 16:[address]: 1[address] evidence of acute cervical spine traumatic injury. 2. Additional findings, as above. Head CT 05/29/23 16:[address] IMPRESS[address]: 1[address] No CT evidence of acute intracranial pathology. 2. Additional findings, as above. Laboratory Results WBC 7.96 10^3/uL (3.29-11.43) 05/29/23 17:05 RBC 5.09 10^6/uL (3.85-5.65) 05/29/23 17:05 Hgb 15.60 g/dL (11.27-16.99) 05/29/23 17:05 Hct 47.6 % (37-53) 05/29/23 17:05 MCV 93.5 fl (82-101) 05/29/23 17:05 MCH 30.6 pg (27-33) 05/29/23 17:05 MCHC 32.8 g/dL (30-55) 05/29/23 17:05 RDW 13.2 % (12.1-15.1) 05/29/23 17:05 Plt Count 131 10^3/cmm (157-399) L 05/29/23 17:05 MPV 10.2 fL (7.4-10.4) 05/29/23 17:05 Neut % (Auto) 63.8 % 05/29/23 17:05 Lymph % (Auto) 23.9 % 05/29/23 17:05 [place] % (Auto) 7.9 % 05/29/23 17:05 Eos % (Auto) 2.9 % 05/29/23 17:05 Baso % (Auto) 1.1 % 05/29/23 17:05 Neut # (Auto) 5.08 10^3/uL (1.8-7.7) 05/29/23 17:05 Lymph # (Auto) 1.9 10^3/uL (0.8-4.8) 05/29/23 17:05 [place] # (Auto) 0.6 10^3/uL (0.2-0.9) 05/29/23 17:05 Eos # (Auto) 0.2 10^3/uL (0.0-0.8) 05/29/23 17:05 Baso # (Auto) 0.1 10^3/uL (0.0-0.1) 05/29/23 17:05 Nucleated RBC % (auto) 0 % 05/29/23 17:05 Nucleated RBCs # 0.0 /100WBC 05/29/23 17:05 Sodium 138 mmol/L (136-145) 05/29/23 17:05 Potassium 3.6 mmol/L (3.5-5.1) 05/29/23 17:05 Chloride 102 mmol/L (98-107) 05/29/23 17:05 Carbon Dioxide 25 mmol/L (22-29) 05/29/23 17:05 Anion Gap 14.6 (5-19) 05/29/23 17:05 BUN 19 mg/dL (8-23) 05/29/23 17:05 Creatinine 0.7 mg/dL (0.7-1.2) 05/29/23 17:05 GFR Calculation 112.5 mL/min (90-130) 05/29/23 17:05 Glucose 131 mg/dL (65-115) H 05/29/23 17:05 Calculated Osmolality 290 mOsm/kg (285-295) 05/29/23 17:05 Calcium 10.3 mg/dL (8.5-10.5) 05/29/23 17:05 Total Bilirubin 0.2 mg/dL (0.15-1.2) 05/29/23 17:05 AST 29 U/L (0-40) 05/29/23 17:05 ALT 26 U/L (0-41) 05/29/23 17:05 Alkaline Phosphatase 113 U/L (40-130) 05/29/23 17:05 Total Protein 7.1 g/dL (6.6-8.7) 05/29/23 17:05 Albumin 3.9 g/dL (3.5-5.2) 05/29/23 17:05 Globulin 3.2 g/dL (1.3-4.6) 05/29/23 17:05 XR interpretation done by ED provider, pending radiology final review Discharge Plan Discharge Patient Disposition: Home Clinical Impression: Acute neck pain Fall Qualifiers: Encounter type: initial encounter Qualified Code(s): W19.XXXA - Unspecified fall, initial encounter Condition: Stable Prescriptions: New hydrocodone-acetaminophen 5-325 mg tablet 1 tab PO Q8H PRN (Reason: pain) Qty: 7 0RF No Action Naprosyn 500 mg tablet 500 mg PO BID PRN (Reason: pain) Qty: 20 0RF Airborne (ascorbate sodium) 1 tab PO DAILY Multiple Vitamins Tablet 1 tab PO DAILY Lasix 40 mg Tablet 40 mg PO QAM metoprolol tartrate 100 mg Tablet 100 mg PO BID trazodone 100 mg Tablet 100 mg PO BEDTIME Protonix 40 mg Tablet,Delayed Release (Dr/Ec) 40 mg PO BID Rx Instructions: pts states the pt takes 40mg po qam indomethacin 50 mg Capsule 50 mg PO TID Rx Instructions: pts states the pt takes 50mg bid omeprazole 20 mg Capsule,Delayed Release(Dr/Ec) 20 mg PO QAM Rx Instructions: pt states he takes this medication or pantoprazole but not both together vitamin B complex Tablet 1 tab PO DAILY hydralazine 50 mg Tablet 50 mg PO TID Rx Instructions: pts states the pt takes 50mg bid sertraline 50 mg Tablet 50 mg PO DAILY Mucus Relief 400 mg Tablet 400 mg PO PRN Lyrica 75 mg Capsule 75 mg PO TID Rx Instructions: pts states the pt takes 75mg bid [place]-3 350 mg-235 mg- 90 mg-597 mg Capsule,Delayed Release(Dr/Ec) 1 cap PO DAILY folic acid 1 tab PO DAILY magnesium oxide 1 tab PO DAILY Discharge Orders: Discharge ED (Routine); Ordered 05/29/23 Ordered By: Lenny Gramajo Patient Instructions: Acute Neck Pain (ED), Opioid Safety, Pain Management Activity Restrictions/Additional Instructions: Please take all medicine as directed. Please follow-up with your family practice physician within next 7 days for further evaluation and treatment as needed. Coding Level of Care Code ED Cook Pie for Hermann Briseno
[2023-05-29 17:12] LABS: Basophils # 0.1 10^3/uL (0.0-0.1); Basophils % 1.1 %; Eosinophils # 0.2 10^3/uL (0.0-0.8); Eosinophils % 2.9 %; Hematocrit 47.6 % (37-53); Lymphocytes # 1.9 10^3/uL (0.8-4.8); Lymphocytes % 23.9 %; Mean Corpuscular HGB Conc 32.8 g/dL (30-55); Mean Corpuscular Hemoglobin 30.6 pg (27-33); Mean Corpuscular Volume 93.5 fl (82-101); Mean Platelet Volume 10.2 fL (7.4-10.4); Monocytes # 0.6 10^3/uL (0.2-0.9); Monocytes % 7.9 %; Neutrophils # 5.08 10^3/uL (1.8-7.7); Neutrophils % 63.8 %; Nucleated Red Blood Cells % 0 %; Platelet Count 131 10^3/cmm (157-399); Red Blood Count 5.09 10^6/uL (3.85-5.65); Red Cell Distribution Width 13.2 % (12.1-15.1); White Blood Count 7.96 10^3/uL (3.29-11.43)
[2023-05-29 17:52] LABS: Alanine Aminotransferase 26 U/L (0-41); Albumin Level 3.9 g/dL (3.5-5.2); Alkaline Phosphatase 113 U/L (40-130); Anion Gap 14.6 (5-19); Aspartate Amino Transferase 29 U/L (0-40); Blood Urea Nitrogen 19 mg/dL (8-23); Calcium 10.3 mg/dL (8.5-10.5); Carbon Dioxide 25 mmol/L (22-29); Chloride 102 mmol/L (98-107); Globulin 3.2 g/dL (1.3-4.6); Glomerular Filtration Rate 112.5 mL/min (90-130); Glucose 131 mg/dL (65-115); Osmolality Calculated 290 mOsm/kg (285-295); Potassium 3.6 mmol/L (3.5-5.1); Sodium 138 mmol/L (136-145); Total Bilirubin 0.2 mg/dL (0.15-1.2); Total Protein 7.1 g/dL (6.6-8.7)
[2023-05-29 18:22] VITALS: BP 151/98; PULSE 62; RESP 16; O2SAT 95
[2023-05-29] MEDS: HYDROcodone-acetaminophen 5-325 mg Tablet 2 TAB PO (18:29)
== END 2023-05-29 18:57 | disposition home or self-care (01) ==
PROVIDERS: Emergency Provider Family Medicine
DX: M54.2 Cervicalgia (principal); W19.XXXA Unspecified fall, initial encounter; Z87.828 Personal history of other (healed) physical injury and trauma
CPT/HCPCS: 36415; 70450; 72125; 80053; 85025; 99284

== ENCOUNTER → 2024-02-26 11:19 | Outpatient (BNVA) | payer OTHER, SELFPAY | PROVIDERS: Visit Provider Podiatrist Foot & Ankle Surgery | DX: M25.571 Pain in right ankle and joints of right foot (principal); M13.871 Other specified arthritis, right ankle and foot; G62.9 Polyneuropathy, unspecified; L60.3 Nail dystrophy | CPT/HCPCS: 73610; 99203 ==

== ENCOUNTER 2024-11-21 23:41 | Emergency (ER) | payer OTHER, MEDICARE, SELFPAY ==
[2024-11-21 23:42] VITALS: BP 124/72; PULSE 61; RESP 16; TEMP 36.7; O2SAT 96; BMI 25.0
--- OUTSIDE RECORDS SUMMARY | 2024-11-21 23:56 | XMS_ITS | Encounter Summary ---
Author Organization [facility] Address [address] [place] [address] Care Team Providers Care Water Pump Servicer Name Role Phone Unavailable Primary Care Provider Unavailabl e Encounter Details Date Type Department Care Team (Late st Contact Info) Description 04/24/2011 Orders Only [facility] Radiology [address] [facility] [place] [address] System, Provider Not In, [address] [facility] [place] [address] Social History Tobacco Use Types Packs/Day Years Used Date Smoking Tobacco: Never Assessed Sex and Gender Information Value Date Recorded Sex Assigned at Not on file Legal Sex Male 10:37 AM CDT Gender Identity Not on file Sexual Orientation Not on file documented as of this encounter Plan of Treatment Not on file documented as of this encounter Procedures Procedure Name Priority Date/Time Associated Diagnosis Comments OUTSIDE IMAGES 04/24/2011 1:02 PM 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 documented in this encounter Results * Outside Images (04/24/2011 1:02 PM 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) Anatomical Region Laterality Modality N/A Radiographic Shanta ging 04/24/2011 1:02 PM 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
--- OUTSIDE RECORDS SUMMARY | 2024-11-21 23:56 | XMS_ITS | Encounter Summary ---
Author Organization [facility] Address [address] [place] [address] Care Team Providers Care Folder Hand Name Role Phone Robert Hooper MD Primary Care Provider [phone] Encounter Details Date Type Department Care Team (Late st Contact Info) Description 09/20/2020 Ancillary Orders [facility] Orthopedics - [facility] [address] [place] [address] [facility], External Provider [address] [place] [address] Pain Social History Tobacco Use Types Packs/Day Years Used Date Smoking Tobacco: Some Days Cigarettes 0.3 50 Cigars Smokeless Tobacco: Former Chew Quit: 07/14/1994 Comments:one - two cigars a week Alcohol Use Standard Drinks/Week Comments Yes 0 (1 standard drink = 0.6 oz pur e alcohol) socially Sex and Gender Information Value Date Recorded Sex Assigned at Not on file 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 Unable to assess 09/01/2020 1:25 PM CDT documented as of this encounter Plan of Treatment Not on file documented as of this encounter Results * XR PRIOR STUDY (08/19/2020 12:00 PM CDT) Narrative 09/20/2020 1:56 PM CDT This exam was auto finalized to allow images to be scanned to PACS. External Provider [facility] DIAGNOSTIC IMAGING ORDERAB LES Final Result * MRI PRIOR STUDY (08/19/2020 12:00 PM CDT) Narrative 09/20/2020 1:56 PM CDT This exam was auto finalized to allow images to be scanned to PACS. us External Provider [facility] MR ORDERABLES Final Resu lt documented in this encounter Visit Diagnoses Diagnosis Pain Generalized pain Pain Generalized pain Pain Generalized pain documented in this encounter Care Teams Folder Hand Relationship Specialty Start Date End Date Robert Hooper MD [address] [facility] [place] [id number] PCP - General Internal Medicine 07/14/18 documented as of this encounter
--- OUTSIDE RECORDS SUMMARY | 2024-11-21 23:56 | XMS_ITS | Encounter Summary ---
Author Organization [facility] Address [address] 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 [place] [address] PCP - General Internal Medicine 07/14/18 documented as of this encounter
--- OUTSIDE RECORDS SUMMARY | 2024-11-21 23:56 | XMS_ITS | Clinical Summary ---
Author Organization [facility] Address [address] [place] [address] Care Team Providers Care Insurance Clerk Name Role Phone Robert Hooper MD Primary Care Provider [phone] Allergies Active Allergy Reactions Criticality Noted Date Comments Cephalexin Rash Low 04/17/2017 Lisinopril Rash Low 04/17/2017 Sulfa (Sulfonamide Antibiotics) Rash Low 09/2016 Sulfa (Sulfonamide Antibiotics) Hives High 07/2018 Medications omeprazole (PriLOSEC) 20 mg Capsule, Delayed Release(E.C.) Take 20 mg by mouth daily. Active metoprolol tartrate (LOPRESSOR) 100 mg tablet Take 100 mg by mouth 2 times daily. Active losartan (COZAAR) 100 mg tablet Take 100 mg by mouth daily. Active amLODIPine (NORVASC) 10 mg tablet Take 10 mg by mouth daily. Active metFORMIN (GLUCOPHAGE) 1,000 mg tablet Take 1,000 mg by mouth 2 times daily with meals. Active insulin glargine (LANTUS) 100 unit/mL vial Inject 170 Units by subcutaneous injection. Active hydroCHLOROthiaz abraham (HYDRODIURIL) 12.5 mg tablet Take 10 mg by mouth daily. Active pregabalin (LYRICA) 300 mg Capsule Take 300 mg by mouth. Active clotrimazole (LOTRIMIN) 1 % Solution Apply to affected area 3 times daily. 10 mL 7 Active pregabalin (LYRICA) 200 mg Capsule Take 200 mg by mouth 3 times daily. Active omeprazole (PriLOSEC) 20 mg Capsule, Delayed Release(E.C.) Take 20 mg by mouth daily. Active insulin aspart protamine-aspar (NovoLOG MIX 70-30) 100 unit/mL (70-30) vial Inject by subcutaneous injection Sliding scale . Active atorvastatin (LIPITOR) 40 mg tablet Take 40 mg by mouth daily at bedtime. Active indomethacin (INDOCIN) 50 mg capsule Take 50 mg by mouth 3 times daily. Active metoprolol tartrate (LOPRESSOR) 50 mg tablet Take 50 mg by mouth 2 times daily. Active allopurinoL (ZYLOPRIM) 100 mg tablet Take 100 mg by mouth daily. Active losartan (COZAAR) 50 mg tablet Take 50 mg by mouth 2 times daily. Active dextromethorphan -guaiFENesin (MUCINEX DM) 30-600 mg Tablet Sustained Release 12HR Take 1 Tablet by mouth late in the day. Active traZODone (DESYREL) 150 mg tablet Take 150 mg by mouth. Active albuterol HFA 90 mcg inhaler Take 2 Puffs by inhalation every 4 hours as needed for Shortness of Breath. Active albuterol (PROVENTIL,JOSIAH SARAY) 5 mg/mL Solution for Nebulization Take by inhalation every 4 hours as needed for Shortness of Breath. Active furosemide (LASIX) 40 mg tablet Take 1 Tablet (40 mg) by mouth daily. 30 Tablet 9 Active lidocaine (LIDODERM) 5 % Adhesive Patch, Medicated Apply 1 Patch to affected area daily. 30 Patch 9 Active insulin glargine (LANTUS) 100 unit/mL injection Inject 85 Units by subcutaneous injection daily at bedtime. 3 mL 9 Active sertraline (ZOLOFT) 100 mg tablet TAKE ONE-HALF TABLET BY MOUTH ONCE A DAY 0 Active mometasone (ASMANEX TWISTHALER) 220 mcg/ actuation (14) Aerosol Powdr Breath Activated Take 1 Puff by inhalation 2 times daily. Active multivitamin (DAILY-JOSEFINA) tablet Take 1 Tablet by mouth daily. Active Active Problems Problem Noted Date Diagnosed Date Influenza A 07/14/2018 Elevated troponin 07/14/2018 Acute congestive heart failure 07/14/2018 Acute respiratory failure with hypoxia 9 DM (diabetes mellitus) 07/14/2018 Benign hypertension 07/14/2018 Gout 07/14/2018 GERD (gastroesophageal reflux disease) 9 Family History Medical History Relation Name Comments Healthy Brother 1 Prostate Cancer Brother 2 Kidney Disease Brother 3 Healthy Daughter 1 Other Daughter 2 Prostate Cancer Father Diabetes Mother Kidney Disease Mother Breast Cancer Sister Lung Cancer Sister Relation Name Status Comments Brother 1 Brother 2 Alive Brother 3 Alive Daughter 1 Alive Daughter 2 Alive Father Mother Sister Social History Tobacco Use Types Packs/Day Years Used Date Smoking Tobacco: Some Days Cigarettes 0.3 50 Cigars Smokeless Tobacco: Former Chew Quit: 07/14/1994 Tobacco Cessation:Ready to Q uit: No; Counseling Given: Yes Comments:one - two cigars a week Alcohol Use Standard Drinks/Week Comments Yes 0 (1 standard drink = 0.6 oz pur e alcohol) socially Sex and Gender Information Value Date Recorded Sex Assigned at Not on file Legal Sex Male 5:53 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 Gender Identity Not on file Sexual Orientation Not on file Last Filed Vital Signs Vital Sign Reading Time Taken Comments Blood Pressure 153/91 09/28/2020 1:20 PM CDT Pulse 70 09/28/2020 1:20 PM CDT Temperature 37.1 C (98.7 F) 05/22/2020 8:53 PM TECHNICAL ARCHITECT Respiratory Rate 18 05/22/2020 8:53 PM TECHNICAL ARCHITECT Oxygen Saturation 98% 05/22/2020 8:53 PM TECHNICAL ARCHITECT Inhaled Oxygen Concentration - - Weight 113.9 kg (251 lb) 09/28/2020 1:20 PM CDT Height 185.4 cm (6' 1 ) 09/28/2020 1:20 PM CDT Body Mass Index 33.12 09/28/2020 1:20 PM CDT Plan of Treatment Health Maintenance Due Date Last Done Comments DIABETES ANNUAL FOOT EXAM 1974 DIABETES ANNUAL RETINAL EXAM 1974 DIABETES MICROALBUMIN ANNUAL SCREEN 1974 PNEUMOCOCCAL VACCINE 50+ YEA RS (1 of 2 - PCV) 1975 COLORECTAL SCREENING 2001 Colorectal Cancer Screening 2001 FIT-DNA Q 3 years 2001 FIT/FOBT Q 1 year 2001 Flex Sig/CT Colonography Q 5 years 2001 ZOSTER VACCINE (1 of 2) 2006 RSV VACCINE (60+ or ) (1 - Risk 60-74 years 1-dose series) 2016 LDL CHOLESTEROL ANNUAL 01/07/2019 01/07/2018, 2017 DIABETES HBA1C Q 6 MONTHS 10/25/20202019, 07/14/2018, 01/07/2018 DTAP/TDAP/TD VACCINES (3 - T d or Tdap) 01/21/2024 01/20/2014, 01/17/2009 INFLUENZA VACCINE (#1) 2024 Procedures Procedure Name Priority Date/Time Associated Diagnosis Comments HEMOGLOBIN A1C Routine 07/14/2018 11:25 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 LIPID PANEL Routine 01/07/2018 from Last 3 Months or Most Recently Relevant to Health Maintenance Results * (ABNORMAL) HEMOGLOBIN A1C (07/14/2018 11:25 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) HEMOGLOBIN A1C 6.4(H) 4.8 - 5.9 % 07/14/2018 3:25 PM TECHNICAL ARCHITECT [facility] EST. AVG GLUCOSE, A1C 137 mg/dL 07/14/2018 3:25 PM TECHNICAL ARCHITECT [facility] Blood Venipuncture / Unknown 07/14/2018 11:25 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 07/14/2018 11:36 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 Narrative [facility] - 07/14/2018 3:25 PM TECHNICAL ARCHITECT HGB A1C INTERPRETATION NORMAL: <5.7% PRE-DIABETES: 5.7 - 6.4% DIABETES: 6.5% OR GREATER us Haylie Boyd FINISH REPAIR WORKER CHEMISTRY ORDERABLES Final Resul t [facility] CLIA # [id number] [address] [place] [address] * LIPID PANEL (01/07/2018) ABSTRACTED CHOLESTEROL 122 EXTERNAL LAB ABSTRACTED TRIGLYCERIDE 545 EXTERNAL LAB ABSTRACTED HDL 25 EXTERNAL LAB ABSTRACTED LDL CALCULATED EXTERNAL LAB Comment:See direct LDL CHOLESTEROL <=200 mg/dL EXTERNAL LAB TRIGLYCERIDE <=150 mg/dL EXTERNAL LAB HDL 40 - 59 mg/dL EXTERNAL LAB LDL CALCULATED <=100 mg/dL EXTERNAL LAB Blood us Abstract Spg Provider CHEMISTRY ORDERABLES Edite d Result - Final EXTERNAL LAB from Last 3 Months or Most Recently Relevant to Health Maintenance Insurance [place] [employer]UM * Guarantor: [facility] A AND B Account Type Relation to Patient Date of Phone Billing Address Corporate Other (Work) [address] [place] [address] [facility] [place] [address] [facility] OFFICE OF [facility]ITY [facility] Advance Directives For more information, please contact: [phone] * Full Code (Latest Code Status on File) Date Activated Date Inactivated Comments 07/14/2018 2:39 PM 07/18/2018 4:45 PM Care Teams Insurance Clerk Relationship Specialty Start Date End Date Robert Hooper MD [address] [facility] [place] [address] PCP - General Internal Medicine 07/14/18
--- OUTSIDE RECORDS SUMMARY | 2024-11-21 23:56 | XMS_ITS | Clinical Summary ---
Author Organization [facility] Address [address] [place] [address] Care Team Providers Care Craps Manager Name Role Phone Robert Hooper MD Primary Care Provider [phone] Allergies Active Allergy Reactions Criticality Noted Date Comments Lisinopril Rash Low 11/14/2021 Sulfa (Sulfonamide Antibiotics) Rash Medium 01/2021 Rash on face Medications lidocaine (LIDODERM) 5 % Adhesive Patch, Medicated Apply 1 Patch to affected area daily. 30 Patch 0 07/20/19 19 Active sertraline (ZOLOFT) 100 mg tablet TAKE ONE-HALF TABLET BY MOUTH ONCE A DAY 12/29/19 20 Active mometasone (ASMANEX TWISTHALER) 220 mcg/ actuation (14) Aerosol Powdr Breath Activated Take 1 Puff by inhalation 2 times daily. 09/29/19 21 Active multivitamin (DAILY-JOSEFINA) tablet Take 1 Tablet by mouth daily. 09/29/19 21 Active azelastine (ASTELIN) 137 mcg/actuation nasal sprayIndications :Seasonal and perennial allergic rhinitis,PND (post-nasal drip) Administer 1 Lawai in each nostril see administration instructions. 1-4x/day PRN 1 mL 5 05/01/20 21 Active pregabalin (LYRICA) 100 mg Capsule Take 100 mg by mouth every 8 hours. Active CHOLECALCIFEROL, VITAMIN D3, ORAL Take by mouth. Active hydrALAZINE 50 mg tablet Take 75 mg by mouth 4 times daily. Active empagliflozin 25 mg tablet Take by mouth daily in the morning. Active tamsulosin 0.4 mg capsule Take 0.4 mg by mouth daily. Active albuterol (PROVENTIL,JOSIAH SARAY) 5 mg/mL Solution for Nebulization Take by inhalation every 4 hours as needed for Shortness of Breath. 07/15/19 Active omeprazole (PriLOSEC) 20 mg Capsule, Delayed Release(E.C.) Take 20 mg by mouth daily. 07/15/19 19 Active allopurinoL (ZYLOPRIM) 100 mg tablet Take 100 mg by mouth daily. 07/15/19 Active indomethacin (INDOCIN) 50 mg capsule Take 50 mg by mouth 3 times daily. 07/15/19 Active traZODone (DESYREL) 150 mg tablet Take 150 mg by mouth. 07/15/19 Active albuterol sulfate 90 mcg/Actuation inhaler Take 2 Puffs by inhalation every 4 hours as needed for Shortness of Breath. 07/15/19 19 Active dextromethorphan -guaiFENesin (MUCINEX DM) 30-600 mg Tablet Sustained Release 12HR Take 1 Tablet by mouth late in the day. 07/15/19 19 Active amLODIPine (NORVASC) 10 mg tablet Take 10 mg by mouth daily. 04/17/20 17 Active metoprolol tartrate (LOPRESSOR) 100 mg tablet Take 100 mg by mouth 2 times daily. 04/17/20 17 Active hydroCHLOROthiaz abraham (HYDRODIURIL) 12.5 mg tablet Take 10 mg by mouth daily. 04/17/20 Active clotrimazole (LOTRIMIN) 1 % Solution Apply to affected area 3 times daily. 10 mL 0 04/17/20 17 Active Active Problems Problem Noted Date Diagnosed Date Acute congestive heart failure 07/14/2018 Influenza A 07/14/2018 Acute respiratory failure with hypoxia 9 Benign hypertension 07/14/2018 GERD (gastroesophageal reflux disease) 9 Elevated troponin 07/14/2018 DM (diabetes mellitus) 07/14/2018 Gout 07/14/2018 Immunizations Immunization Administration Dates Next Due (ADACEL/BOOSTRIX)(10 YR UP) TDAP VACCINE, 0.5ML, IM 07/22/2022 Family History Medical History Relation Name Comments Kidney Disease Brother 1 Healthy Brother 2 Prostate Cancer Brother 3 Other Daughter 1 Healthy Daughter 2 Prostate Cancer Father Diabetes Mother Kidney Disease Mother Breast Cancer Sister Lung Cancer Sister Relation Name Status Comments Brother 1 Alive Brother 2 Brother 3 Alive Daughter 1 Alive Daughter 2 Alive Father Mother Sister Social History Tobacco Use Types Packs/Day Years Used Date Smoking Tobacco: Some Days Cigarettes Smokeless Tobacco: Former Quit: 07/14/1994 Tobacco Cessation:Ready to Q uit: Not Asked; Counseling Given: Not Answered Comments:Quit smoking: one - two cigars a week Alcohol Use Standard Drinks/Week Comments Yes 0 (1 standard drink = 0.6 oz pur e alcohol) Feeling Safe Answer Date Recorded Are you in a relationship wi th someone who hurts you emotionally and/or physically? 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 Gender Identity Not on file Sexual Orientation Not on file Last Filed Vital Signs Vital Sign Reading Time Taken Comments Blood Pressure 151/89 08/31/2022 10:28 PM CDT Pulse 65 08/31/2022 10:28 PM CDT Temperature 36.7 C (98 F) 08/31/2022 10:28 PM CDT Respiratory Rate 17 08/31/2022 10:2 8 PM CDT Oxygen Saturation 100% 08/31/2022 10: 28 PM CDT Inhaled Oxygen Concentration - - Weight 107.5 kg (236 lb 14.4 oz) 08/31/2022 6:47 PM CDT Height 190.5 cm (6' 3 ) 08/31/2022 6:47 PM CDT Body Mass Index 29.61 08/31/2022 6:47 PM CDT Plan of Treatment Health Maintenance Due Date Last Done Comments DIABETES ANNUAL FOOT EXAM 1974 DIABETES MICROALBUMIN ANNUAL SCREEN 1974 PNEUMOCOCCAL VACCINE 50+ YEA RS (1 of 2 - PCV) 1975 03/31/2011 COLORECTAL SCREENING 2001 Colorectal Cancer Screening 2001 FIT-DNA Q 3 years 2001 FIT/FOBT Q 1 year 2001 Flex Sig/CT Colonography Q 5 years 2001 ZOSTER VACCINE (1 of 2) 2006 RSV VACCINE (60+ or ) (1 - Risk 60-74 years 1-dose series) 2016 LDL CHOLESTEROL ANNUAL 01/07/2019 01/07/2018, 2017 DIABETES ANNUAL RETINAL EXAM 01/09/2023 01/09/2022 DIABETES HBA1C Q 6 MONTHS 03/24/20232022, 04/26/2020, 07/14/2018, Additional history exists INFLUENZA VACCINE (#1) 2024 DTAP/TDAP/TD VACCINES (4 - T d or Tdap) 07/22/2032 07/22/2022, 01/20/2014, 01/17/2009 Procedures Procedure Name Priority Date/Time Associated Diagnosis Comments HEMOGLOBIN A1C Routine 04/26/2020 LIPID PANEL Routine 01/07/2018 from Last 3 Months or Most Recently Relevant to Health Maintenance Results * HEMOGLOBIN A1C (04/26/2020) ABSTRACTED HGB A1C 7.7 Blood 04/26/2020 us Abstract Provider CHEMISTRY ORDERABLES Final Res ult * LIPID PANEL (01/07/2018) ABSTRACTED CHOLESTEROL 122 EXTERNAL LAB ABSTRACTED TRIGLYCERIDE 545 EXTERNAL LAB ABSTRACTED HDL 25 EXTERNAL LAB ABSTRACTED LDL CALCULATED ^ EXTERNAL LAB Comment:See direct LDL CHOLESTEROL ^ 200 mg/dL EXTERNAL LAB TRIGLYCERIDE ^ 150 mg/dL EXTERNAL LAB HDL ^ 40 - 59 mg/dL EXTERNAL LAB LDL CALCULATED ^ 100 mg/dL EXTERNAL LAB Blood 01/07/2018 Narrative EXTERNAL LAB - 01/07/2018 12:00 AM CDT This order was created through External Result Entry us Abstract Spg Provider CHEMISTRY ORDERABLES Edite d Result - Final EXTERNAL LAB from Last 3 Months or Most Recently Relevant to Health Maintenance Insurance MEDICARE PART A AND B [facility] [employer] * Guarantor: [facility] A (C) Account Type Relation to Patient Date of Phone Billing Address Corporate Other DEFAULT ADDRESS [address] [employer] [facility] OFFICE OF [facility] [place] [employer] [employer] Care Teams Craps Manager Relationship Specialty Start Date End Date Robert Hooper MD [address] [place] [phone] PCP - General Internal Medicine 07/14/18
--- OUTSIDE RECORDS SUMMARY | 2024-11-21 23:56 | XMS_ITS | Encounter Summary ---
Author Organization [facility] Address [address] [place] [address] Care Team Providers Care Hand Singer Name Role Phone Robert Hooper MD Primary Care Provider [phone] Encounter Details Date Type Department Care Team (Latest Contact Info) Description 07/13/2004 Outpatient Historical [facility] [address] 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
--- OUTSIDE RECORDS SUMMARY | 2024-11-21 23:56 | XMS_ITS | Patient Health Record ---
Author Organization [facility] Address [address] [place], [place] [address] Care Team Providers Care Scientist Engineer Name Role Phone Janine MANZANARES, Johnathan Unavailable [phone] [place], [place] Unavailable Unavailable Allergies Allergen (clinical drug ingredient) Drug/Non Drug Allergy documented on EMR Reaction Allergy Type Onset Date Status sulfa (uncoded) Unknown Allergy Acti ve Keflex Unknown Drug Allergy Active lisinopril Unknown Drug Allergy Active Reason For Referral No Information Plan Of Treatment No Information Insurance Providers Payer Name Payer Address Payer Phone Subscriber Number Group Number Insured Name Patient Relationship to Insured Coverage Start Date Coverage End Date [employer] [address] [place] [address] [phone] [id number] Carlos Mack Self - patient is the insured Medical (General) History Medical History History ICD Code Chronic pain in back, feet and legs Major depressive disorder, recurrent Hyperlipidemia Gout Essential hypertension Cervicalgia Fracture low radius with ulna / closed Mental disorder Episodic mood disorder Vascular dementia Diabetes mellitus type II Hyperlipidemia Lumbago PTSD Arthropathy
--- OUTSIDE RECORDS SUMMARY | 2024-11-21 23:56 | XMS_ITS | Clinical Summary ---
Author Organization [facility] Address [address] [place] [address] Care Team Providers Care Supervisor Compounding And Finishing Name Role Phone Unavailable Primary Care Provider Unavailabl e Allergies Active Allergy Reactions Criticality Noted Date Comments Cephalexin Unknown 12/05/2022 Lisinopril Unknown 12/05/2022 Losartan Unknown 12/05/2022 Sulfa (Sulfonamide Antibiotics) Unknown 11/12 Medications albuterol (VENTOLIN) 2.5 mg /3 mL (0.083%) nebulizer solution Take 1 ampule by nebulization every 6 (six) hours as needed. Active allopurinoL (ZYLOPRIM) 300 MG tablet Take 300 mg by mouth in the morning. Active amLODIPine (NORVASC) 10 MG tablet Take 10 mg by mouth in the morning. Active atorvastatin (LIPITOR) 80 MG tablet Take 80 mg by mouth in the morning. Active benzoyl peroxide 3 % cream Apply topically. Act magdaleno cholecalciferol , vitamin D3, 1,000 unit tablet Take 1,000 Units by mouth in the morning. Active empagliflozin (JARDIANCE) 25 mg tablet Take 12.5 mg by mouth every morning. Active fluticasone propionate (FLONASE) 50 mcg/actuation nasal spray Administer 1 spray into each nostril in the morning. Active furosemide (LASIX) 40 MG tablet Take 40 mg by mouth in the morning. Active hydrALAZINE (APRESOLINE) 50 MG tablet Take 50 mg by mouth in the morning and 50 mg at noon and 50 mg in the evening. Active indomethacin (INDOCIN) 50 MG capsule Take 50 mg by mouth 2 (two) times a day with breakfast and supper. Active metFORMIN (GLUCOPHAGE) 1000 MG tablet Take 1,000 mg by mouth 2 (two) times a day with breakfast and supper. Active metoprolol tartrate (LOPRESSOR) 100 MG tablet Take 100 mg by mouth every 12 (twelve) hours. Active omeprazole (PriLOSEC) [address] capsule Take 20 mg by mouth every morning before breakfast. Active pregabalin (LYRICA) 150 MG capsule Take 150 mg by mouth in the morning and 150 mg in the evening. Active sertraline (ZOLOFT) 50 MG tablet Take 50 mg by mouth in the morning. Active tamsulosin (FLOMAX) 0.4 mg 24 hr capsule Take 0.4 mg by mouth every evening. Active docosahexaenoic acid-epa 120-180 mg capsule Take by mouth. Activ e B-complex with vitamin C (B-PLEX) tablet Take 1 tablet by mouth in the morning. Active aspirin-acetami nophen-caffeine (EXCEDRIN MIGRAINE) 250-250-65 mg per tablet Take 1 tablet by mouth every 6 (six) hours as needed. Active Social History Tobacco Use Types Packs/Day Years Used Date Smoking Tobacco: Never Assessed Sex and Gender Information Value Date Recorded Sex Assigned at Not on file Legal Sex Male 10:37 AM CDT Gender Identity Not on file Sexual Orientation Not on file Plan of Treatment Health Maintenance Due Date Last Done Comments Annual Wellness 1955 Td, Tdap Vaccines Adult 1975 Colonoscopy 2001 Pneumococcal Vaccine: 50+ Ye ars (1 of 1 - PCV) 2006 Shingrix (ZOSTER RECOMBINANT ) (1 of 2) 2006 RSV 60+ (1 - Risk 60-74 year s 1-dose series) 2016 Influenza Vaccination (#1) 2024 HIB Vaccines Aged Out No longer eligi ble based on patient's age to complete this topic HPV Vaccines Aged Out No longer eligi ble based on patient's age to complete this topic Hepatitis A Vaccines Aged Out No long er eligible based on patient's age to complete this topic Hepatitis B Vaccines Aged Out No long er eligible based on patient's age to complete this topic IPV Vaccines Aged Out No longer eligi ble based on patient's age to complete this topic Meningococcal Vaccines Aged Out No lo nger eligible based on patient's age to complete this topic RSV Mab Nirsevimab (Beyfortu s) <20 months Aged Out No longer eligible b ased on patient's age to complete this topic Rotavirus Vaccines Aged Out No longer eligible based on patient's age to complete this topic Insurance [facility]
--- OUTSIDE RECORDS SUMMARY | 2024-11-21 23:56 | XMS_ITS | Encounter Summary ---
Author Organization [facility] Address [address] [place] [address] Care Team Providers Care Field Crop Farmer Name Role Phone Robert Hooper MD Primary Care Provider Encounter Details Date Type Department Care Team (Latest Contact Info) Description 10/31/2005 Outpatient Historical [facility] [address] 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
--- OUTSIDE RECORDS SUMMARY | 2024-11-21 23:56 | XMS_ITS | Encounter Summary ---
Author Organization [facility] Address [address] [place] [address] Care Team Providers Care Hoop Punch And Coiler Operator Helper Name Role Phone Robert Hooper MD Primary Care Provider Encounter Details Date Type Department Care Team (Late st Contact Info) Description 03/08/2004 Emergency [facility] [address] 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
[2024-11-22 00:13] LABS: Hematocrit 43.7 % (37-53); Hemoglobin 14.40 g/dL (11.27-16.99); Mean Corpuscular HGB Conc 33.0 g/dL (30-55); Mean Corpuscular Hemoglobin 31.9 pg (27-33); Mean Corpuscular Volume 96.7 fl (82-101); Nucleated Red Blood Cells % 0 %; Platelet Count 110 10^3/cmm (157-399); Red Blood Count 4.52 10^6/uL (3.85-5.65); White Blood Count 9.85 10^3/uL (3.29-11.43)
[2024-11-22 00:26] LABS: Alanine Aminotransferase 33 U/L (0-41); Albumin Level 3.9 g/dL (3.5-5.2); Alkaline Phosphatase 117 U/L (40-130); Anion Gap 16.8 (5-19); Aspartate Amino Transferase 28 U/L (0-40); Blood Urea Nitrogen 25 mg/dL (8-23); Calcium 10.3 mg/dL (8.5-10.5); Carbon Dioxide 23 mmol/L (22-29); Chloride 105 mmol/L (98-107); Creatinine Clr Calc Pharmacy 58.8666; Globulin 2.7 g/dL (1.3-4.6); Glucose 89 mg/dL (65-115); Osmolality Calculated 296 mOsm/kg (285-295); Potassium 3.8 mmol/L (3.5-5.1); Sodium 141 mmol/L (136-145); Total Protein 6.6 g/dL (6.6-8.7)
[2024-11-22 01:05] VITALS: BP 148/89; PULSE 62; RESP 18
--- NOTE | 2024-11-22 02:18 | CTR_ITS ---
PROCEDURE INFORMATION: Exam: CT Head Without Contrast Exam date and time: 11/22/2024 2:35 AM Age: 69 years old Clinical indication: C/O dizziness TECHNIQUE: Imaging protocol: Computed tomography of the head without contrast. Radiation optimization: All CT scans at this facility use at least one of these dose optimization techniques: automated exposure control; mA and/or kV adjustment per patient size (includes targeted exams where dose is matched to clinical indication); or iterative reconstruction. COMPARISON: CT head wo con* [id number] 05/29/2023 5:16 PM RADIATION DOSE METRICS: Total DLP (mGy-cm): 1126.28 FINDINGS: Brain: There is no mass effect, midline shift, acute hemorrhage, extra-axial fluid collection or acute lobar infarct. Fairly extensive patchy hemispheric white matter hypodensity likely represents chronic microvascular ischemic change. Chronic ganglial capsular lacunar infarcts are present. Cerebral ventricles: No ventriculomegaly. Paranasal sinuses: Visualized sinuses are unremarkable. No fluid levels. Mastoid air cells: Mastoid air cells are somewhat under developed on the right. Orbital cavities: The patient is post bilateral cataract surgery. Bones: Unremarkable. No acute fracture. Soft tissues: Unremarkable. CT/CT head wo con* [id number] IMPRESSION: No acute intracranial process.
--- NOTE | 2024-11-22 02:27 | ECG_ITS ---
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 Measurements Intervals Berino Rate: 61 P: -11 ME: 147 QRS: -1 QRSD: 106 T: 41 QT: 430 QTc: 436 Interpretive Statements SINUS RHYTHM Compared to ECG 12/16/2019 22:13:51 Sinus bradycardia no longer present T-wave abnormality no longer present Electronically Signed On 11-25-2024 10:13:04 CDT by Earle Rdz M.D. [email or web address]
[2024-11-22 02:56] VITALS: BP 128/84; BP 138/84; BP 165/99; PULSE 58; PULSE 60; PULSE 62
[2024-11-22 03:02] VITALS: BP 128/84; PULSE 68; O2SAT 95
[2024-11-22 03:14] LABS: Glucose Urine UA 3+ (Normal); Nitrate Urine Negative (Negative); Specific Gravity, Urine 1.019 (1.005-1.030)
[2024-11-22 03:19] LABS: Add Urine Microscopic? YES
[2024-11-22 03:26] LABS: Troponin(5th) Baseline 20 ng/L (0-15)
[2024-11-22 03:28] LABS: Alcohol Level < 10 mg/dL (0-10)
--- NOTE | 2024-11-22 03:37 | W.ED.WEAKNES ---
HPI - Weakness General: Chief complaint: Weakness Stated complaint: Dizziness, Weakness Time Seen by Provider: 11/22/24 02:08 History of Present Illness: 69-year-old male patient with a remote history of syncopal episodes. He states that when getting up from sitting at home, he had to sit right back down because he felt like he was going to pass out. This worried him because of the syncopal episodes in the past, causing injury to himself. He denies chest pain. He is not short of breath. He is generally weak. He has not had a fever. He states he has not been confused. He lives with his . Related Data Home Medications ?Medication ?Instructions ?Recorded ?Confirmed Airborne (ascorbate sodium) 1 tab PO DAILY 12/16/19 02/26/24 folic acid 1 tab PO DAILY 12/16/19 02/26/24 furosemide 40 mg tablet (Lasix) 40 mg PO QAM 12/16/19 02/26/24 guaifenesin 400 mg tablet (Mucus 400 mg PO PRN 12/16/19 02/26/24 Relief) hydralazine 50 mg tablet 50 mg PO TID 12/16/19 02/26/24 indomethacin 50 mg capsule 50 mg PO TID 12/16/19 02/26/24 magnesium oxide 1 tab PO DAILY 12/16/19 02/26/24 metoprolol tartrate 100 mg tablet 100 mg PO BID 12/16/19 02/26/24 multivitamin (Multiple Vitamins 1 tab PO DAILY 12/16/19 02/26/24 tablet) omega 3 350 mg-dha 235 mg-epa 90 1 cap PO DAILY 12/16/19 02/26/24 mg-fish oil 597 mg capsule,delay rel ([place]-3) omeprazole 20 mg capsule,delayed 20 mg PO QAM 12/16/19 02/26/24 release pantoprazole 40 mg tablet,delayed 40 mg PO BID 12/16/19 02/26/24 release (Protonix) pregabalin 75 mg capsule (Lyrica) 75 mg PO TID 12/16/19 02/26/24 sertraline 50 mg tablet 50 mg PO DAILY 12/16/19 02/26/24 trazodone 100 mg tablet 100 mg PO BEDTIME 12/16/19 02/26/24 vitamin B complex 1 tab PO DAILY 12/16/19 02/26/24 Previous Rx's ?Medication ?Instructions ?Recorded naproxen 500 mg tablet (Naprosyn) 500 mg PO BID PRN pain #20 tabs 07/05/20 hydrocodone 5 mg-acetaminophen 325 1 tab PO Q8H PRN pain #7 tabs 05/29/23 mg tablet Allergies Allergy/AdvReac Type Severity Reaction Status Date / Time Sulfa (Sulfonamide Allergy ALGY-Hives Verified 02/26/24 11:29 Antibiotics) PFSH ED PFSH: Medical History (Updated 11/22/24 @ 03:40 by Camilo Newby DO) Depression Neuropathy GERD (gastroesophageal reflux disease) Hyperlipidemia Hypertension Family History Mother Cancer Dementia Father Cancer Psychiatric illness Social History Smoking and tobacco/nicotine status: unknown if used tobacco/nicotine Alcohol intake: former Substance/Drug Use: never Physical Exam Const: COMMON NORMALS: no acute distress and alert GENERAL APPEARANCE: cooperative; not ill appearing and not frail appearing HENMT: COMMON NORMALS: normocephalic, atraumatic and Normal external nose present HEAD & SCALP: normocephalic and atraumatic FACE & SINUS: normal facial exam and face symmetric NOSE: Normal external nose present Eye: COMMON NORMALS: Equal, round and reactive pupils present and EOMs intact bilaterally PUPIL: Yes Equal, round and reactive pupils present Neck/C-Spine: GENERAL: Yes trachea midline Chest: CHEST: Yes Symmetrical chest wall rise Resp: COMMON NORMALS: normal respiratory effort, No retractions, No use of accessory muscles and clear to auscultation bilaterally AUSCULTATION: clear to auscultation bilaterally Cardio: COMMON NORMALS: regular rate and regular rhythm RATE: regular rate RHYTHM: regular rhythm GI: COMMON NORMALS: Normal to inspection, nondistended, normoactive bowel sounds present Extremity: COMMON NORMALS: no pedal edema Neuro: CONSTANCE COMA SCALE: document GCS findings [place] coma scale eye opening: Spontaneous [place] coma scale verbal response: Orientated [place] coma scale motor response: Obey commands [place] coma scale total score: 15 COMMON NORMALS: no focal motor deficits and no sensory deficits noted SENSORIUM/ORIENTATION: Yes alert COORDINATION/BALANCE: [id number] test normal and sqma-da-[id number] test normal SPEECH: speech normal SENSORY EXAM: Yes extremities (intact) MOTOR EXAM: Pronator motor function not present COORDINATION: [id number] test normal and pmbv-gt-gvwp test normal Psych: COMMON NORMALS: speech normal SPEECH: Yes normal speech Skin: COMMON NORMALS: no rashes or lesions noted GENERAL SKIN EXAM: no rashes or lesions noted Course Vital Signs: Vital signs: Vital Signs Temperature 98.1 F 11/21/24 23:42 Pulse Rate 61 11/22/24 04:18 Respiratory Rate 18 11/22/24 01:05 Blood Pressure 164/92 11/22/24 04:18 Pulse Oximetry 97 11/22/24 04:18 Oxygen Delivery Me thod Room Air 11/22/24 04:18 MDM - Weakness Medical Decision Making Patient's vitals are stable, but he is positive for orthostasis from lying to sitting with a drop greater than 20 points systolic in his blood pressure. He is symptomatic with this as well. He is given a 2 L bolus with improvement. His creatinine is 1.4. His platelet count is 110. Other labs are not remarkable. Head CT is not remarkable. EKG shows no acute ST wave changes. Urinalysis shows no urinary tract infection. His first troponin is 20, which is his baseline from prior. He has no history of chest pain with these episodes. He will be discharged home to outpatient follow-up. Lab Data 11/21/24 22:40 11/21/24 22:[address] 11/22/24 02:18 IMPRESSION: No acute intracranial process. Laboratory Results WBC 9.85 10^3/uL (3.29-11.43) 11/21/24 22:40 RBC 4.52 10^6/uL (3.85-5.65) 11/21/24 22:40 Hgb 14.40 g/dL (11.27-16.99) 11/21/24 22:40 Hct 43.7 % (37-53) 11/21/24 22:40 MCV 96.7 fl (82-101) 11/21/24 22:40 MCH 31.9 pg (27-33) 11/21/24 22:40 MCHC 33.0 g/dL (30-55) 11/21/24 22:40 RDW 13.9 % (12.1-15.1) 11/21/24 22:40 Plt Count 110 10^3/cmm (157-399) L 11/21/24 22:40 MPV 11.1 fL (7.4-10.4) H 11/21/24 22:40 Neut % (Auto) 63.5 % 11/21/24 22:40 Lymph % (Auto) 24.3 % 11/21/24 22:40 Baker % (Auto) 6.8 % 11/21/24 22:40 Eos % (Auto) 3.9 % 11/21/24 22:40 Baso % (Auto) 0.9 % 11/21/24 22:40 Neut # (Auto) 6.26 10^3/uL (1.8-7.7) 11/21/24 22:40 Lymph # (Auto) 2.4 10^3/uL (0.8-4.8) 11/21/24 22:40 Baker # (Auto) 0.7 10^3/uL (0.2-0.9) 11/21/24 22:40 Eos # (Auto) 0.4 10^3/uL (0.0-0.8) 11/21/24 22:40 Baso # (Auto) 0.1 10^3/uL (0.0-0.1) 11/21/24 22:40 Nucleated RBC % (auto) 0 % 11/21/24 22:40 Nucleated RBCs # 0.0 /100WBC 11/21/24 22:40 Sodium 141 mmol/L (136-145) 11/21/24 22:40 Potassium 3.8 mmol/L (3.5-5.1) 11/21/24 22:40 Chloride 105 mmol/L (98-107) 11/21/24 22:40 Carbon Dioxide 23 mmol/L (22-29) 11/21/24 22:40 Anion Gap 16.8 (5-19) 11/21/24 22:40 BUN 25 mg/dL (8-23) H 11/21/24 22:40 Creatinine 1.4 mg/dL (0.7-1.2) H 11/21/24 22:40 GFR Calculation 50.4 mL/min (90-130) L 11/21/24 22:40 Glucose 89 mg/dL (65-115) 11/21/24 22:40 Calculated Osmolality 296 mOsm/kg (285-295) H 11/21/24 22:40 Calcium 10.3 mg/dL (8.5-10.5) 11/21/24 22:40 Total Bilirubin 0.4 mg/dL (0.15-1.2) 11/21/24 22:40 AST 28 U/L (0-40) 11/21/24 22:40 ALT 33 U/L (0-41) 11/21/24 22:40 Alkaline Phosphatase 117 U/L (40-130) 11/21/24 22:40 Troponin T Baseline 20 ng/L (0-15) H 11/22/24 02:57 Total Protein 6.6 g/dL (6.6-8.7) 11/21/24 22:40 Albumin 3.9 g/dL (3.5-5.2) 11/21/24 22:40 Globulin 2.7 g/dL (1.3-4.6) 11/21/24 22:40 Urine Color Yellow (Yellow) 11/22/24 03:06 Urine Appearance Clear (CLEAR) 11/22/24 03:06 Urine pH 5.5 (5-7) 11/22/24 03:06 Ur Specific [place] 1.019 (1.005-1.030) 11/22/24 03:06 Urine Protein Negative (Negative) 11/22/24 03:06 Urine Glucose (UA) 3+ (Normal) H 11/22/24 03:06 Urine Ketones Trace (Negative) 11/22/24 03:06 Urine Blood Negative (Negative) 11/22/24 03:06 Urine Nitrate Negative (Negative) 11/22/24 03:06 Urine Bilirubin Negative (Negative) 11/22/24 03:06 Urine Urobilinogen 1.0 mg/dL (Negative) 11/22/24 03:06 Ur Leukocyte Esterase Negative (Negative) 11/22/24 03:06 Urine RBC 0-2 /hpf (0-2) 11/22/24 03:06 Urine WBC 0-5 /hpf (0-5) 11/22/24 03:06 Ur Squamous Epith Cells 0-5 /hpf (0-5) 11/22/24 03:06 Amorphous Sediment Not Reportable 11/22/24 03:06 Urine Bacteria None seen /hpf (NONE) 11/22/24 03:06 Hyaline Casts 1.21 /lpf 11/22/24 03:06 Ethyl Alcohol < 10 mg/dL (0-10) 11/22/24 02:57 All radiology interpretation(s) finalized by discharge Discharge Plan Discharge Patient Disposition: Home Clinical Impression: Orthostatic hypotension, Near syncope Condition: Stable Prescriptions: No Action Naprosyn 500 mg tablet 500 mg PO BID PRN (Reason: pain) Qty: 20 0RF Airborne (ascorbate sodium) 1 tab PO DAILY Multiple Vitamins Tablet 1 tab PO DAILY Lasix 40 mg Tablet 40 mg PO QAM metoprolol tartrate 100 mg Tablet 100 mg PO BID trazodone 100 mg Tablet 100 mg PO BEDTIME Protonix 40 mg Tablet,Delayed Release (Dr/Ec) 40 mg PO BID Rx Instructions: pts states the pt takes 40mg po qam indomethacin 50 mg Capsule 50 mg PO TID Rx Instructions: pts states the pt takes 50mg bid omeprazole 20 mg Capsule,Delayed Release(Dr/Ec) 20 mg PO QAM Rx Instructions: pt states he takes this medication or pantoprazole but not both together vitamin B complex Tablet 1 tab PO DAILY hydralazine 50 mg Tablet 50 mg PO TID Rx Instructions: pts states the pt takes 50mg bid sertraline 50 mg Tablet 50 mg PO DAILY Mucus Relief 400 mg Tablet 400 mg PO PRN Lyrica 75 mg Capsule 75 mg PO TID Rx Instructions: pts states the pt takes 75mg bid [place]-3 350 mg-235 mg- 90 mg-597 mg Capsule,Delayed Release(Dr/Ec) 1 cap PO DAILY folic acid 1 tab PO DAILY magnesium oxide 1 tab PO DAILY hydrocodone-acetaminophen 5-325 mg tablet 1 tab PO Q8H PRN (Reason: pain) Qty: 7 0RF Discharge Orders: Discharge ED (Routine); Ordered 11/22/24 Ordered By: Camilo Newby Patient Instructions: Dehydration (ED), Near Syncope (ED), Opioid Safety, Pain Management, Patient Portal & Janelle Instructions Activity Restrictions/Additional Instructions: Drink plenty of liquids and stay in a cool environment for the next 48 hours. Return for worsening dizziness despite this, development of chest discomfort, mental status changes, etc. Print Language: Macedonian Coding Level of Care Code ED Black Oxide Coating Equipment Tender for Hermann Briseno
[2024-11-22 04:18] VITALS: BP 164/92; PULSE 61; O2SAT 97
[2024-11-22 05:30] VITALS: BP 171/100; PULSE 71; O2SAT 96
== END 2024-11-22 05:45 | disposition home or self-care (01) ==
PROVIDERS: Emergency Provider Emergency Medicine
DX: I95.1 Orthostatic hypotension (principal); E78.5 Hyperlipidemia, unspecified; I10 Essential (primary) hypertension
CPT/HCPCS: 36415; 70450; 80053; 80307; 81001; 84484; 85025; 93005; 96360; 99284; J7030